=== PATIENT | male | born 1970 | race Two or more races ===

== ENCOUNTER 2016-07-27 09:31 | Inpatient (IN) | payer OTHER ==
[2016-07-27 10:21] VITALS: BMI 25.1
--- NOTE | 2016-07-27 10:59 | HP ---
COWS - Scale Resting Pulse: 1= [place] 81-100 Sweatin= Chills/Flushing Restless Observation: 1= Difficult to Sit Still Pupil Size: 0= Normal to Room Light Bone or Joint Aches: 1= Mild Discomfort Runny Nose/ Eye Tearin= Nasal Congestion GI Upset > 30mins: 2= Nausea/Diarrhea Tremor Observation: 1= Tremor [place], Not Seen Yawning Observation: 1= 1-2x During Session Anxiety or Irritability: 1=Feels Anxious/Irritable Goose Flesh Skin: 0=Smooth Skin COWS Score: 10 CIWA Score - CIWA Score Nausea/Vomitin-Mild Nausea/No Vomiting Muscle Tremors: 4-Moderate,w/Arms Extend Anxiety: 4-Mod. Anxious/Guarded Agitation: 1-Slight > Activity Paroxysmal Sweats: 1-Minimal Palms Moist Orientation: 1-Uncertain about Date Tacttile Disturbances: 1-Very Mild Itch/Numbness Auditory Disturbances: 1-Very Mild Visual Disturbances: 1-Very Mild Sensitivity Headache: 1-Very Mild CIWA-Ar Total Score: 16 Admission [facility] - HPI Chief Complaint: I want to get clean Allergies/Adverse Reactions: Allergies Allergy/AdvReac Type Severity Reaction Status Date / Time No Known Allergies Allergy Verified 07/27/16 11:40 History of Present Illness: 45 yo gentleman here for detox from heroin and alcohol - previous detox here in february 2016 - then he went to [place] and continued using. No seizures but does have occasional black outs. Exam Limitations: Clinical Condition - Ebola screening Have you traveled outside of the country in the last 21 days: No Have you had contact with anyone from an Ebola affected area: No Have you been sick,other than usual withdrawal symptoms: No Do you have a fever: No - Review of Systems Constitutional: Loss of Appetite, Malaise, Night Sweats, Changes in sleep, Weakness, Unexplained wgt Loss EENT: reports: Blurred Vision Respiratory: reports: No Symptoms reported Cardiac: reports: No Symptoms Reported GI: reports: Nausea, Indigestion : reports: Frequency Musculoskeletal: reports: Back Pain, Muscle Pain Integumentary: reports: Flushing Neuro: reports: Tremors Endocrine: reports: No Symptoms Reported Hematology: reports: No Symptoms Reported Psychiatric: reports: Judgement Intact, Mood/Affect Appropiate, Anxious Other Systems: Reviewed and Negative Patient History - Patient Medical History Hx Anemia: No Hx Asthma: No Hx Chronic Obstructive Pulmonary Disease (COPD): No Hx Cancer: No Hx Cardiac Disorders: No Hx Congestive Heart Failure: No Hx Hypertension: Yes (non compliance) Hx Hypercholesterolemia: No Hx Pacemaker: No HX Cerebrovascular Accident: No Hx Seizures: No Hx Dementia: No Hx Diabetes: No Hx Gastrointestinal Disorders: No Hx Liver Disease: Yes (hep C - not treated) Hx Genitourinary Disorders: No Hx Sexually Transmitted Disorders: No Hx Renal Disease (ESRD): No Hx Thyroid Disease: No Hx Human Immunodeficiency Virus (HIV): No (last 2005 negative) Hx Hepatitis C: Yes Hx Depression: No Hx Suicide Attempt: No Hx Bipolar Disorder: No Hx Schizophrenia: No Other Medical History: PPD+ - treated - Patient Surgical History Past Surgical History: No Hx Neurologic Surgery: No Hx Cataract Extraction: No Hx Cardiac Surgery: No Hx Lung Surgery: No Hx Breast Surgery: No Hx Breast Biopsy: No Hx Abdominal Surgery: No Hx Appendectomy: No Hx Cholecystectomy: No Hx Genitourinary Surgery: No Hx Section: No Hx Orthopedic Surgery: No Anesthesia Reaction: No - PPD History Previous Implant?: Yes Documented Results: Positive w/o proof Date: 03/26/16 (cxr) PPD to be Administered?: No - Reproductive History Patient is a Female of Child Bearing Age (11 -55 yrs old): No (male) - Smoking Cessation Smoking history: Current every day smoker Have you smoked in the past 12 months: Yes Aproximately how many cigarettes per day: 20 Hx Chewing Tobacco Use: No Initiated information on smoking cessation: Yes 'Breaking Loose' booklet given: 07/27/16 (give on floor) - Substance & Tx. History Hx Alcohol Use: Yes Hx Substance Use: Yes Substance Use Type: Alcohol, Heroin Hx Substance Use Treatment: Yes (detox, rehab) - Substances Abused Alcohol Route: Oral Frequency: Daily Amount used: two six packs 16oz beer Age of first use: 15 Date of Last Use: 07/26/16 Heroin Route: Injection Frequency: Daily Amount used: 9 bags Age of first use: 18 Date of Last Use: 07/26/16 Family Disease History - Family Disease History Family Disease History: Diabetes: Mother (alive, HTN), Heart Disease: Mother, Other: Father (, ALCOHOL), Mother, Brother (alive, no problems), Sister (2 sisters alive - no problems) Admission Physical Exam [facility] - Vital Signs Vital Signs: Vital Signs - 24 hr 07/27/16 10:18 Temperature 96 F L Pulse Rate 82 Respiratory 20 Rate Blood Pressure 150/90 - Physical General Appearance: Yes: Nourished, Appropriately Dressed, Mild Distress, Tremorous, Anxious HEENTM: Yes: Hearing grossly Normal, Normal ENT Inspection, Normocephalic, Normal Voice, Pharynx Normal Respiratory: Yes: Normal Breath Sounds, No Respiratory Distress Neck: Yes: No masses,lesions,Nodules, Supple Breast: Yes: Breast Exam Deferred Cardiology: Yes: Regular Rhythm, Regular Rate Abdominal: Yes: Flat, Soft Genitourinary: Yes: Within Normal Limits Back: Yes: Normal Inspection Musculoskeletal: Yes: full range of Motion, Gait Steady, Back pain Extremities: Yes: Normal Inspection, Normal Range of Motion, Non-Tender Neurological: Yes: Fully Oriented, Alert, Normal Mood/Affect, Normal Response Integumentary: Yes: Normal Color, Warm, Track Ngo (both arms antecubital space ) Lymphatic: Yes: Within Normal Limits - Diagnostic (1) Alcohol dependence with uncomplicated withdrawal Current Visit: Yes Status: Chronic (2) Essential hypertension Current Visit: Yes Status: Chronic (3) Nicotine dependence Current Visit: Yes Status: Chronic Qualifiers: Nicotine product type: cigarettes Substance use status: uncomplicated Qualified Code(s): F17.210 - Nicotine dependence, cigarettes, uncomplicated (4) Opioid dependence with withdrawal Current Visit: Yes Status: Chronic (5) Weight loss Current Visit: Yes Status: Chronic (6) Hepatitis C Current Visit: Yes Status: Chronic Qualifiers: Viral hepatitis chronicity: carrier Qualified Code(s): B18.2 - Chronic viral hepatitis C (7) PPD positive, treated Current Visit: Yes Status: Chronic Comment: chest x ray 03/26/17 noted Cleared for Admission [facility] - Detox or Rehab [facility] Level of Care: Medically Managed Detox Regimen/Protocol: Methadone/Librium [facility] Breath Alcohol Content Breath Alcohol Content: 0 Urine Drug Screen - Results Drug Screen Negative: No Urine Drug Screen Results: OPI-Opiates
[2016-07-27] MEDS ORDERED: MAGNESIUM HYDROX 2400MG/30ML ORAL SUSPENSION 30 ML CUP PO PRN (11:08)
[2016-07-27] MEDS ORDERED: MAG HYDROX/AL HYDROX/SIMETH 30 ML UNIT-DOSE CUP PO PRN (11:08)
[2016-07-27] MEDS ORDERED: IBUPROFEN 400 MG TABLET (FP) PO PRN (11:08)
[2016-07-27] MEDS ORDERED: MENTHOL/PHENOL 1 EACH UD MM PRN (11:08)
[2016-07-27] MEDS ORDERED: ACETAMINOPHEN 325 MG TABLET (FP) PO PRN (11:08)
[2016-07-27] MEDS ORDERED: METHADONE HCL 10 MG TABLET (FOR DETOX USE ONLY) PO ONE ×2 (11:08→23:00)
[2016-07-27] MEDS ORDERED: chlordiazePOXIDE HCL 25 MG CAPSULE PO PRN (11:08)
[2016-07-27] MEDS ORDERED: hydrOXYzine PAMOATE 50 MG CAPSULE (FP) PO PRN (11:08)
[2016-07-27] MEDS ORDERED: guaiFENesin/D-METHORPHAN HB 10 ML UNIT-DOSE CUPS PO PRN (11:08)
[2016-07-27] MEDS ORDERED: NICOTINE POLACRILEX 4 MG GUM BUC PRN (11:08)
[2016-07-27] MEDS ORDERED: P-EPHED 60MG/TRIPROLIDI 2.5MG TABLET PO PRN (11:08)
[2016-07-27] MEDS ORDERED: MAGNESIUM CITRATE 300 ML BOTTLE PO PRN (11:08)
[2016-07-27] MEDS ORDERED: LOPERAMIDE HCL 2 MG CAPSULE PO PRN (11:08)
[2016-07-27] MEDS: LISINOPRIL 10 MG TABLET (FP) PO SCH (12:53)
[2016-07-27] MEDS ORDERED: chlordiazePOXIDE HCL 25 MG CAPSULE PO ONE (13:00)
[2016-07-27] MEDS: chlordiazePOXIDE HCL 25 MG CAPSULE PO SCH ×2 (17:44→22:22)
[2016-07-27 21:43] LABS: URINE APPEARANCE CLEAR; URINE BILIRUBIN NEGATIVE (NEGATIVE); URINE COLOR AMBER; URINE GLUCOSE (UA) NEGATIVE (NEGATIVE); URINE KETONE NEGATIVE (NEGATIVE); URINE NITRITE NEGATIVE (NEGATIVE); URINE PROTEIN NEGATIVE (NEGATIVE); URINE UROBILINOGEN 4.0 E.U/dl E.U./dl (0.2-1.0)
[2016-07-27 21:46] LABS: URINE BLOOD 2+ (NEGATIVE); URINE LEUK ESTERASE 1+ (NEGATIVE)
[2016-07-27 21:51] LABS: URINE BACTERIA RARE /hpf (NONE SEEN); URINE HYALINE CAST 3 /lpf; URINE MUCUS FEW; URINE RBC 60 /hpf (0-3); URINE WBC 14 /hpf (3-5); YEAST MODERATE
[2016-07-27] MEDS: THIAMINE HCL 100 MG TABLET (FP) PO SCH (22:22)
[2016-07-27] MEDS: diphenhydrAMINE HCL 50 MG CAPSULE PO PRN (22:23)
[2016-07-28] MEDS: chlordiazePOXIDE HCL 25 MG CAPSULE PO SCH ×4 (05:22→22:34)
[2016-07-28] MEDS ORDERED: METHADONE HCL 10 MG TABLET (FOR DETOX USE ONLY) PO SCH (10:00)
[2016-07-28] MEDS: PRENATAL VITAMINS W/ FOLIC ACID TABLET (FP) PO SCH (10:22)
[2016-07-28] MEDS: LISINOPRIL 10 MG TABLET (FP) PO SCH (10:22)
[2016-07-28 10:25] LABS: MCH 28.1 pg (25.7-33.7); MCHC 33.9 g/dl (32.0-35.9); MEAN PLT VOLUME 9.5 fl (7.5-11.1); PLATELET COUNT 41 K/MM3 (134-434); RDW 15.2 % (11.9-15.9); WHITE BLOOD COUNT 3.4 K/mm3 (4.0-10.0)
[2016-07-28 10:48] LABS: ALBUMIN 2.8 g/dl (3.4-5.0); ALK PHOS 93 U/L (45-117); ANION GAP 6 (8-16); BILIRUBIN,TOTAL 0.8 mg/dL (0.2-1.0); CO2 30 mmol/L (21-32); COCKROFT - GAULT 183.32; CREATININE 0.6 mg/dL (0.7-1.3); GLUCOSE,RANDOM 120 mg/dL (74-106); SGOT/AST 126 U/L (15-37); SGPT/ALT 105 U/L (12-78); TOT PROT 6.9 g/dl (6.4-8.2)
--- NOTE | 2016-07-28 15:15 | PN ---
S CIWA - CIWA Score Nausea/Vomitin Muscle Tremors: 4-Moderate,w/Arms Extend Anxiety: 4-Mod. Anxious/Guarded Agitation: 4-Moderately Restless Paroxysmal Sweats: No Perspiration Orientation: 0-Oriented Tacttile Disturbances: 1-Very Mild Itch/Numbness Auditory Disturbances: 0-None Visual Disturbances: 0-None Headache: 1-Very Mild CIWA-Ar Total Score: 17 [facility] COWS - Scale Resting Pulse: 0= [place] 80 or Below Sweatin= Chills/Flushing Restless Observation: 3= Extraneous Movement Pupil Size: 0= Normal to Room Light Bone or Joint Aches: 2= Severe Diffuse Aches Runny Nose/ Eye Tearin= Runny Nose/Eyes GI Upset > 30mins: 1= Stomach Cramp Tremor Observation of Outstretched Hands: 2= Slight Tremor Visible Yawning Observation: 0= None Anxiety or Irritability: 2=Irritable/Anxious Goose Flesh Skin: 0=Smooth Skin COWS Score: 13 [facility] Progress Note (SOAP) Subjective: Anxious, nausea, sweating, interrupted sleep, tremor, chills Objective: 07/28/16 15:14 Last Vital Signs Temp Pulse Resp BP Pulse Ox 96.2 F L 64 19 113/77 07/28/16 13:27 07/28/16 13:27 07/28/16 13:27 07/28/16 13:27 07/28/16 07/28/16 07:50 07:50 WBC 3.4 L D RBC 4.87 Hgb 13.7 Hct 40.5 MCV 83.0 MCHC 33.9 RDW 15.2 Plt Count 41 L Sodium 142 Potassium 4.1 Chloride 106 Carbon Dioxide 30 Anion Gap 6 L BUN 10 D Creatinine 0.6 L D Labs noted Assessment: 07/28/16 15:15 Withdrawal symptoms Plan: Continue detox
[2016-07-28] MEDS: THIAMINE HCL 100 MG TABLET (FP) PO SCH (22:34)
[2016-07-28] MEDS: diphenhydrAMINE HCL 50 MG CAPSULE PO PRN (22:34)
--- NOTE | 2016-07-29 00:15 | EKG ---
Test Reason : Blood Pressure : / mmHG Vent. Rate : 073 BPM Atrial Rate : 073 BPM P-R Int : 132 ms QRS Dur : 096 ms QT Int : 402 ms P-R-T Axes : 021 062 022 degrees QTc Int : 442 ms NORMAL SINUS RHYTHM NORMAL ECG NO PREVIOUS ECGS AVAILABLE Confirmed by TIMA PAINTER MD ([id number]) on 07/29/2016 12:14:54 AM Referred By: Confirmed By:TIMA PAINTER MD
[2016-07-29] MEDS: chlordiazePOXIDE HCL 25 MG CAPSULE PO SCH ×2 (05:46→10:22)
[2016-07-29] MEDS: PRENATAL VITAMINS W/ FOLIC ACID TABLET (FP) PO SCH (10:22)
[2016-07-29] MEDS: LISINOPRIL 10 MG TABLET (FP) PO SCH (10:22)
[2016-07-29] MEDS: METHADONE HCL 5 MG TABLET (FOR DETOX USE ONLY) PO SCH (10:22)
--- NOTE | 2016-07-29 12:18 | PN ---
[facility] CIWA - CIWA Score Nausea/Vomitin-Mild Nausea/No Vomiting Muscle Tremors: 4-Moderate,w/Arms Extend Anxiety: 3 Agitation: 4-Moderately Restless Paroxysmal Sweats: 3 Orientation: 0-Oriented Tacttile Disturbances: 0-None Auditory Disturbances: 0-None Visual Disturbances: 0-None Headache: 0-None Present CIWA-Ar Total Score: 15 [facility] COWS - Scale Resting Pulse: 0= [place] 80 or Below Sweatin=Flushed/Facial Moisture Restless Observation: 1= Difficult to Sit Still Pupil Size: 0= Normal to Room Light Bone or Joint Aches: 2= Severe Diffuse Aches Runny Nose/ Eye Tearin= Runny Nose/Eyes GI Upset > 30mins: 2= Nausea/Diarrhea Tremor Observation of Outstretched Hands: 2= Slight Tremor Visible Yawning Observation: 1= 1-2x During Session Anxiety or Irritability: 2=Irritable/Anxious Goose Flesh Skin: 0=Smooth Skin COWS Score: 14 [facility] Progress Note (SOAP) Subjective: Sweating,interrupted sleep,restless,tremors,anxiety Objective: 07/29/16 12:17 Vital Signs - 8 hr 07/29/16 07/29/16 06:47 09:23 Temperature 95.7 F L 97.1 F L Pulse Rate 67 60 Respiratory 18 18 Rate Blood Pressure 115/68 118/77 Laboratory Last Values WBC 3.4 K/mm3 (4.0-10.0) L D 07/28/16 07:50 RBC 4.87 M/mm3 (4.00-5.60) 07/28/16 07:50 Hgb 13.7 GM/dL (11.7-16.9) 07/28/16 07:50 Hct 40.5 % (35.4-49) 07/28/16 07:50 MCV 83.0 fl (80-96) 07/28/16 07:50 MCHC 33.9 g/dl (32.0-35.9) 07/28/16 07:50 RDW 15.2 % (11.9-15.9) 07/28/16 07:50 Plt Count 41 K/MM3 (134-434) L 07/28/16 07:50 MPV 9.5 fl (7.5-11.1) 07/28/16 07:50 Sodium 142 mmol/L (136-145) 07/28/16 07:50 Potassium 4.1 mmol/L (3.5-5.1) 07/28/16 07:50 Chloride 106 mmol/L (98-107) 07/28/16 07:50 Carbon Dioxide 30 mmol/L (21-32) 07/28/16 07:50 Anion Gap 6 (8-16) L 07/28/16 07:50 BUN 10 mg/dL (7-18) D 07/28/16 07:50 Creatinine 0.6 mg/dL (0.7-1.3) L D 07/28/16 07:50 Creat Clearance w eGFR > 60 (>60) 07/28/16 07:50 Random Glucose 120 mg/dL (74-106) H 07/28/16 07:50 Calcium 8.0 mg/dL (8.5-10.1) L 07/28/16 07:50 Total Bilirubin 0.8 mg/dL (0.2-1.0) 07/28/16 07:50 AST 126 U/L (15-37) H D 07/28/16 07:50 ALT 105 U/L (12-78) H D 07/28/16 07:50 Alkaline Phosphatase 93 U/L (45-117) 07/28/16 07:50 Total Protein 6.9 g/dl (6.4-8.2) 07/28/16 07:50 Albumin 2.8 g/dl (3.4-5.0) L 07/28/16 07:50 Urine Color [place] 07/27/16 Unknown Urine Appearance Clear 07/27/16 Unknown Urine pH 6.0 (5.0-8.0) 07/27/16 Unknown Ur Specific [place] 1.018 (1.001-1.035) 07/27/16 Unknown Urine Protein Negative (NEGATIVE) 07/27/16 Unknown Urine Glucose (UA) Negative (NEGATIVE) 07/27/16 Unknown Urine Ketones Negative (NEGATIVE) 07/27/16 Unknown Urine Blood 2+ (NEGATIVE) H 07/27/16 Unknown Urine Nitrite Negative (NEGATIVE) 07/27/16 Unknown Urine Bilirubin Negative (NEGATIVE) 07/27/16 Unknown Urine Urobilinogen 4.0 e.u/dl E.U./dl (0.2-1.0) 07/27/16 Unknown Ur Leukocyte Esterase 1+ (NEGATIVE) H 07/27/16 Unknown Urine RBC 60 /hpf (0-3) 07/27/16 Unknown Urine WBC 14 /hpf (3-5) 07/27/16 Unknown Ur Epithelial Cells Rare /hpf (FEW) 07/27/16 Unknown Urine Bacteria Rare /hpf (NONE SEEN) 07/27/16 Unknown Hyaline Casts 3 /lpf 07/27/16 Unknown Urine Mucus Few 07/27/16 Unknown Urine Yeast Moderate 07/27/16 Unknown RPR Titer Nonreactive (NONREACTIVE) 07/28/16 07:50 labs noted,repeat U/A Assessment: 07/29/16 12:17 Withdrawal sx. Plan: Continue detox
[2016-07-29 16:53] LABS: URINE APPEARANCE CLEAR; URINE BILIRUBIN NEGATIVE (NEGATIVE); URINE BLOOD NEGATIVE (NEGATIVE); URINE COLOR YELLOW; URINE GLUCOSE (UA) NEGATIVE (NEGATIVE); URINE KETONE NEGATIVE (NEGATIVE); URINE NITRITE NEGATIVE (NEGATIVE); URINE PROTEIN NEGATIVE (NEGATIVE); URINE UROBILINOGEN 2.0 E.U/dl E.U./dl (0.2-1.0)
[2016-07-29 16:58] LABS: URINE LEUK ESTERASE TRACE (NEGATIVE)
[2016-07-29 17:00] LABS: URINE MUCUS RARE; URINE RBC 3 /hpf (0-3); URINE WBC 9 /hpf (3-5)
[2016-07-29] MEDS: chlordiazePOXIDE 5 MG CAPSULE PO SCH ×2 (17:59→22:30)
[2016-07-29] MEDS: THIAMINE HCL 100 MG TABLET (FP) PO SCH (22:29)
[2016-07-29] MEDS: diphenhydrAMINE HCL 50 MG CAPSULE PO PRN (22:29)
[2016-07-30] MEDS: chlordiazePOXIDE 5 MG CAPSULE PO SCH ×2 (05:23→10:21)
[2016-07-30 09:49] VITALS: BP 135/78; PULSE 78; TEMP 96.1
[2016-07-30] MEDS: LISINOPRIL 10 MG TABLET (FP) PO SCH (09:52)
[2016-07-30] MEDS: PRENATAL VITAMINS W/ FOLIC ACID TABLET (FP) PO SCH (09:52)
[2016-07-30] MEDS: METHADONE HCL 5 MG TABLET (FOR DETOX USE ONLY) PO SCH (09:53)
--- NOTE | 2016-07-30 10:26 | PN ---
[facility] Progress Note (SOAP) Subjective: SLIGHT ANXIETY,SWEATS, INTERMITTENT SLEEP. Objective: 07/30/16 10:25 Vital Signs Temperature 96.1 F L 07/30/16 09:48 Pulse Rate 78 07/30/16 09:48 Respiratory Rate 20 07/30/16 09:48 Blood Pressure 135/78 07/30/16 09:48 O2 Sat by Pulse Oximetry (%) Laboratory Last Values WBC 3.4 K/mm3 (4.0-10.0) L D 07/28/16 07:50 RBC 4.87 M/mm3 (4.00-5.60) 07/28/16 07:50 Hgb 13.7 GM/dL (11.7-16.9) 07/28/16 07:50 Hct 40.5 % (35.4-49) 07/28/16 07:50 MCV 83.0 fl (80-96) 07/28/16 07:50 MCHC 33.9 g/dl (32.0-35.9) 07/28/16 07:50 RDW 15.2 % (11.9-15.9) 07/28/16 07:50 Plt Count 41 K/MM3 (134-434) L 07/28/16 07:50 MPV 9.5 fl (7.5-11.1) 07/28/16 07:50 Sodium 142 mmol/L (136-145) 07/28/16 07:50 Potassium 4.1 mmol/L (3.5-5.1) 07/28/16 07:50 Chloride 106 mmol/L (98-107) 07/28/16 07:50 Carbon Dioxide 30 mmol/L (21-32) 07/28/16 07:50 Anion Gap 6 (8-16) L 07/28/16 07:50 BUN 10 mg/dL (7-18) D 07/28/16 07:50 Creatinine 0.6 mg/dL (0.7-1.3) L D 07/28/16 07:50 Creat Clearance w eGFR > 60 (>60) 07/28/16 07:50 Random Glucose 120 mg/dL (74-106) H 07/28/16 07:50 Calcium 8.0 mg/dL (8.5-10.1) L 07/28/16 07:50 Total Bilirubin 0.8 mg/dL (0.2-1.0) 07/28/16 07:50 AST 126 U/L (15-37) H D 07/28/16 07:50 ALT 105 U/L (12-78) H D 07/28/16 07:50 Alkaline Phosphatase 93 U/L (45-117) 07/28/16 07:50 Total Protein 6.9 g/dl (6.4-8.2) 07/28/16 07:50 Albumin 2.8 g/dl (3.4-5.0) L 07/28/16 07:50 Urine Color Yellow 07/29/16 16:28 Urine Appearance Clear 07/29/16 16:28 Urine pH 7.0 (5.0-8.0) 07/29/16 16:28 Ur Specific [place] 1.015 (1.001-1.035) 07/29/16 16:28 Urine Protein Negative (NEGATIVE) 07/29/16 16:28 Urine Glucose (UA) Negative (NEGATIVE) 07/29/16 16:28 Urine Ketones Negative (NEGATIVE) 07/29/16 16:28 Urine Blood Negative (NEGATIVE) 07/29/16 16:28 Urine Nitrite Negative (NEGATIVE) 07/29/16 16:28 Urine Bilirubin Negative (NEGATIVE) 07/29/16 16:28 Urine Urobilinogen 2.0 e.u/dl E.U./dl (0.2-1.0) 07/29/16 16:28 Ur Leukocyte Esterase Trace (NEGATIVE) H 07/29/16 16:28 Urine RBC 3 /hpf (0-3) 07/29/16 16:28 Urine WBC 9 /hpf (3-5) 07/29/16 16:28 Ur Epithelial Cells Rare /hpf (FEW) 07/27/16 Unknown Urine Bacteria Rare /hpf (NONE SEEN) 07/27/16 Unknown Hyaline Casts 3 /lpf 07/27/16 Unknown Urine Mucus Rare 07/29/16 16:28 Urine Yeast Moderate 07/27/16 Unknown RPR Titer Nonreactive (NONREACTIVE) 07/28/16 07:50 UC RESULT PENDING Assessment: 07/30/16 10:25 WITHDRAWAL SX Plan: CONTINUE DETOX
--- NOTE | 2016-07-30 11:13 | DS ---
[facility] Detox Discharge Summary Admission Date: 07/27/16 Discharge Date: 07/30/16 - History Present History: Alcohol Dependence, Opioid Dependence Additional Comments: PT DECLINED TO CONTINUE WITH DETOX FOR PERSONAL REASONS. PT WAS ENCOURAGED TO COMPLETE TX AND REMINDED ABOUT HIS PENDING LAB RESULTS/UC BUT PT STATED TO HIS NURSE, MELANIE THAT HE IS NOT STAYING AND THAT HE ALSO DOES NOT WANT TO BE CONTACTED WITH RESULTS WHEN AVAILABLE. Pertinent Past History: HEP C HTN - Physical Exam Results Vital Signs: Vital Signs Temperature 96.1 F L 07/30/16 09:48 Pulse Rate 78 07/30/16 09:48 Respiratory Rate 20 07/30/16 09:48 Blood Pressure 135/78 07/30/16 09:48 O2 Sat by Pulse Oximetry (%) - Treatment Hospital Course: Discharged Condition Good - Medication Discharge Medications: Ambulatory Orders Lisinopril 10 mg PO DAILY 07/27/16 - Diagnosis (1) Alcohol dependence with uncomplicated withdrawal Current Visit: Yes Status: Acute (2) Essential hypertension Current Visit: Yes Status: Chronic (3) Hepatitis C Current Visit: Yes Status: Chronic Qualifiers: Viral hepatitis chronicity: carrier Qualified Code(s): B18.2 - Chronic viral hepatitis C (4) Nicotine dependence Current Visit: Yes Status: Chronic Qualifiers: Nicotine product type: cigarettes Substance use status: in withdrawal Qualified Code(s): F17.213 - Nicotine dependence, cigarettes, with withdrawal (5) Opioid dependence with withdrawal Current Visit: Yes Status: Acute - AMA Did Patient Leave Against Medical Advice: Yes (AMA)
[2016-07-30] MEDS ORDERED: chlordiazePOXIDE HCL 10 MG CAPSULE PO SCH (17:00)
[2016-07-31] MEDS ORDERED: METHADONE HCL 10 MG TABLET (FOR DETOX USE ONLY) PO SCH (10:00)
[2016-08-01] MEDS ORDERED: METHADONE HCL 5 MG TABLET (FOR DETOX USE ONLY) PO SCH (06:00)
== END 2016-07-30 11:10 | disposition left against medical advice (07) | DRG 770 ==
LOC: YASAS 09:31 → Y3N 12:23
PROVIDERS: ADMIT Internal Medicine; ATTEND Internal Medicine
PROC: HZ2ZZZZ Detoxification Services for Substance Abuse Treatment (ICD-10-PCS; principal; 2016-07-30)
DX: F11.23 Opioid dependence with withdrawal (principal); F17.213 Nicotine dependence, cigarettes, with withdrawal; I10 Essential (primary) hypertension; B18.2 Chronic viral hepatitis C; R76.11 Nonspecific reaction to tuberculin skin test without active tuberculosis; R63.4 Abnormal weight loss; Z68.25 Body mass index [BMI] 25.0-25.9, adult
CPT/HCPCS: 36415; 80053; 81003; 81015; 85027; 86593; 87086; 93005; 93010

== ENCOUNTER 2016-12-06 11:00 | Inpatient (IN) | payer OTHER ==
[2016-12-06 11:44] VITALS: BMI 25.1
[2016-12-06] MEDS ORDERED: NICOTINE 14 MG/24 HOURS TOPICAL PATCH TD PRN (17:37)
[2016-12-06] MEDS ORDERED: NICOTINE POLACRILEX 2 MG GUM BC PRN (17:37)
[2016-12-06] MEDS ORDERED: chlordiazePOXIDE HCL 25 MG CAPSULE PO PRN (17:37)
[2016-12-06] MEDS ORDERED: MAG HYDROX/AL HYDROX/SIMETH 30 ML UNIT-DOSE CUP PO PRN (17:37)
[2016-12-06] MEDS ORDERED: IBUPROFEN 400 MG TABLET (FP) PO PRN (17:37)
[2016-12-06] MEDS ORDERED: P-EPHED 60MG/TRIPROLIDI 2.5MG TABLET PO PRN (17:37)
[2016-12-06] MEDS ORDERED: METHADONE HCL 10 MG TABLET (FOR DETOX USE ONLY) PO ONE ×2 (17:37→23:00)
[2016-12-06] MEDS ORDERED: ACETAMINOPHEN 325 MG TABLET (FP) PO PRN (17:37)
[2016-12-06] MEDS ORDERED: guaiFENesin/D-METHORPHAN HB 10 ML UNIT-DOSE CUPS PO PRN (17:37)
[2016-12-06] MEDS ORDERED: LOPERAMIDE HCL 2 MG CAPSULE PO PRN (17:37)
[2016-12-06] MEDS ORDERED: MAGNESIUM HYDROX 2400MG/30ML ORAL SUSPENSION 30 ML CUP PO PRN (17:37)
[2016-12-06] MEDS ORDERED: MAGNESIUM CITRATE 300 ML BOTTLE PO PRN (17:37)
[2016-12-06] MEDS ORDERED: MENTHOL/PHENOL 1 EACH UD MM PRN (17:37)
--- NOTE | 2016-12-06 17:47 | PN ---
[facility] Progress Note Note: received pharmacist informed that wrong profile order set had been ordered obtained proper medical number and correct order set placed
[2016-12-06 21:17] LABS: URINE APPEARANCE CLOUDY; URINE BILIRUBIN NEGATIVE (NEGATIVE); URINE BLOOD 1+ (NEGATIVE); URINE COLOR AMBER; URINE GLUCOSE (UA) NEGATIVE (NEGATIVE); URINE KETONE NEGATIVE (NEGATIVE); URINE NITRITE NEGATIVE (NEGATIVE); URINE UROBILINOGEN 4.0 E.U/dl mg/dL (0.2-1.0)
[2016-12-06 21:20] LABS: URINE LEUK ESTERASE 2+ (NEGATIVE); URINE PROTEIN 2+ (NEGATIVE)
[2016-12-06 21:34] LABS: CALCIUM OXALATE CRYSTALS RARE /hpf (NONE SEEN); URINE BACTERIA FEW /hpf (NONE SEEN); URINE HYALINE CAST 58 /lpf; URINE MUCUS MANY; URINE RBC 9 /hpf (0-3); URINE WBC 126 /hpf (3-5); YEAST FEW
[2016-12-06] MEDS: chlordiazePOXIDE HCL 25 MG CAPSULE PO SCH (22:08)
[2016-12-06] MEDS: THIAMINE HCL 100 MG TABLET (FP) PO SCH (22:08)
[2016-12-06] MEDS: diphenhydrAMINE HCL 50 MG CAPSULE PO PRN (22:10)
[2016-12-07] MEDS: chlordiazePOXIDE HCL 25 MG CAPSULE PO SCH ×4 (06:09→22:14)
[2016-12-07] MEDS ORDERED: METHADONE HCL 10 MG TABLET (FOR DETOX USE ONLY) PO SCH (10:00)
[2016-12-07] MEDS: LISINOPRIL 10 MG TABLET (FP) PO SCH (10:09)
[2016-12-07] MEDS: PRENATAL VITAMINS W/ FOLIC ACID TABLET (FP) PO SCH (10:09)
--- NOTE | 2016-12-07 12:58 | CONSULT ---
[facility] Psychiatric Consult - Data Date of interview: 12/07/16 Admission source: [facility] Identifying data: Readmission to [facility] for this 46 y/o male seeking detox treatment on for alcohol and heroin dependence.Patient is ,a father of two,domiciled,currently unemployed and collecting unemployment benefits. Substance Abuse History: Discussed with patient in this interview.Mr Cedeno confirms personal history of alcohol and heroin dependence. -Smoking Cessation. Smoking history: Current every day smoker. Have you smoked in the past 12 months: Yes. Aproximately how many cigarettes per day: 20. Hx Chewing Tobacco Use: No. Initiated information on smoking cessation: Yes. 'Breaking Loose' booklet given: 12/06/16. - Substance & Tx. History. Hx Alcohol Use: Yes. Hx Substance Use: Yes. Substance Use Type: Alcohol, Heroin Medical History: Hepatitis C and Hypertension. Psychiatric History: Patient denies. Physical/Sexual Abuse/Trauma History: Patient denies. Additional Comment: No Urine toxicology available. Mental Status Exam - Mental Status Exam Alert and Oriented to: Time, Place, Person Cognitive Function: Good Patient Appearance: Well Groomed Mood: Hopeful, Euthymic Affect: Appropriate, Normal Range Patient Behavior: Fatigued, Appropriate, Cooperative Speech Pattern: Clear Voice Loudness: Normal Thought Process: Intact, Goal Oriented Thought Disorder: Not Present Hallucinations: Denies Suicidal Ideation: Denies Homicidal Ideation: Denies Insight/Judgement: Poor Sleep: Poorly (wants benadryl) Appetite: Good Muscle strength/Tone: Normal Gait/Station: Normal Psychiatric Findings - Problem List ([place] 1, 2,3) (1) Alcohol dependence with uncomplicated withdrawal Current Visit: Yes Status: Acute (2) Opioid dependence with withdrawal Current Visit: Yes Status: Acute (3) Nicotine dependence Current Visit: No Status: Chronic Qualifiers: Nicotine product type: cigarettes Substance use status: in withdrawal Qualified Code(s): F17.213 - Nicotine dependence, cigarettes, with withdrawal (4) Essential hypertension Current Visit: Yes Status: Chronic (5) Hepatitis C Current Visit: Yes Status: Chronic Qualifiers: Viral hepatitis chronicity: carrier Qualified Code(s): B18.2 - Chronic viral hepatitis C (6) PPD positive, treated Current Visit: Yes Status: Chronic Comment: chest x ray 03/26/17 noted (7) Weight loss Current Visit: Yes Status: Chronic (8) Insomnia Current Visit: Yes Status: Acute - Initial Treatment Plan Initial Treatment Plan: Psychoeducation.Detoxification.Benadryl 50 mg po hs prn for insomnia.Side effects/benefits discussed with patient.He agrees with careplan.Observation.
[2016-12-07 13:19] LABS: HIV 1 & 2 AB NEGATIVE; HIV 1 AGp24 NEGATIVE
--- NOTE | 2016-12-07 14:33 | PN ---
[facility] CIWA - CIWA Score Nausea/Vomitin-Mild Nausea/No Vomiting Muscle Tremors: 3 Anxiety: 4-Mod. Anxious/Guarded Agitation: 3 Paroxysmal Sweats: 3 Orientation: 0-Oriented Tacttile Disturbances: 2-Mild Itch/Numbness/Burn Auditory Disturbances: 0-None Visual Disturbances: 2-Mild Sensitivity Headache: 0-None Present CIWA-Ar Total Score: 18 S COWS - Scale Resting Pulse: 0= [place] 80 or Below Sweatin= Chills/Flushing Restless Observation: 1= Difficult to Sit Still Pupil Size: 0= Normal to Room Light Bone or Joint Aches: 2= Severe Diffuse Aches Runny Nose/ Eye Tearin= Nasal Congestion GI Upset > 30mins: 1= Stomach Cramp Tremor Observation of Outstretched Hands: 2= Slight Tremor Visible Yawning Observation: 1= 1-2x During Session Anxiety or Irritability: 2=Irritable/Anxious Goose Flesh Skin: 3=Pil[place] COWS Score: 14 [facility] Progress Note (SOAP) Subjective: Anxious, Sweating, Fatigue, Tremors. Objective: PT. A & O X 3. NO ACUTE DISTRESS. 12/07/16 14:29 Vital Signs Temperature 97.4 F L 12/07/16 13:41 Pulse Rate 65 12/07/16 13:41 Respiratory Rate 18 12/07/16 13:41 Blood Pressure 130/79 12/07/16 13:41 O2 Sat by Pulse Oximetry (%) Laboratory Tests 12/06/16 12/06/16 13:00 20:00 Urine Color [place] Urine Appearance Cloudy Urine pH 5.0 D Ur Specific [place] 1.025 Urine Protein 2+ H Urine Glucose (UA) Negative Urine Ketones Negative Urine Blood 1+ H Urine Nitrite Negative Urine Bilirubin Negative Urine Urobilinogen 4.0 e.u/dl Ur Leukocyte Esterase 2+ H D Urine RBC 9 Urine WBC 126 Ur Epithelial Cells Rare Calcium Oxalate Crystal Rare Urine Bacteria Few Hyaline Casts 58 Urine Mucus Many Urine Yeast Few HIV 1&2 Antibody Screen Negative HIV P24 Antigen Negative LABS NOTED. RPR RESULT PENDING. 12/07/16 14:32 Assessment: 12/07/16 14:30 WITHDRAWAL SYMPTOMS. Plan: CONTINUE DETOX. REPEAT CBC, CMP FOR ADMISSION ABNORMALITIES. REPEAT UA WITH URINE C + S. BGM ACBK FOR ELEVATED ADMISSION RANDOM GLUCOSE LEVEL. INCREASE PO FLUID INTAKE.
[2016-12-07] MEDS: THIAMINE HCL 100 MG TABLET (FP) PO SCH (22:14)
[2016-12-07] MEDS: diphenhydrAMINE HCL 50 MG CAPSULE PO PRN (22:15)
[2016-12-08] MEDS: chlordiazePOXIDE HCL 25 MG CAPSULE PO SCH ×3 (05:32→17:22)
[2016-12-08] MEDS: METHADONE HCL 5 MG TABLET (FOR DETOX USE ONLY) PO SCH (10:11)
[2016-12-08] MEDS: PRENATAL VITAMINS W/ FOLIC ACID TABLET (FP) PO SCH (10:11)
[2016-12-08] MEDS: LISINOPRIL 10 MG TABLET (FP) PO SCH (10:11)
--- NOTE | 2016-12-08 13:49 | PN ---
S CIWA - CIWA Score Nausea/Vomitin Muscle Tremors: 4-Moderate,w/Arms Extend Anxiety: 4-Mod. Anxious/Guarded Agitation: 4-Moderately Restless Paroxysmal Sweats: 3 Orientation: 0-Oriented Tacttile Disturbances: 1-Very Mild Itch/Numbness Auditory Disturbances: 0-None Visual Disturbances: 0-None Headache: 0-None Present CIWA-Ar Total Score: 19 [facility] COWS - Scale Resting Pulse: 0= [place] 80 or Below Sweatin= Chills/Flushing Restless Observation: 3= Extraneous Movement Pupil Size: 0= Normal to Room Light Bone or Joint Aches: 1= Mild Discomfort Runny Nose/ Eye Tearin= Runny Nose/Eyes GI Upset > 30mins: 1= Stomach Cramp Tremor Observation of Outstretched Hands: 2= Slight Tremor Visible Yawning Observation: 1= 1-2x During Session Anxiety or Irritability: 2=Irritable/Anxious Goose Flesh Skin: 0=Smooth Skin COWS Score: 13 S Progress Note (SOAP) Subjective: Nausea, chills, tremor, sweating, interrupted sleep Objective: 12/08/16 13:48 Laboratory Tests 12/06/16 12/06/16 12/08/16 13:00 20:00 05:32 POC Glucometer 106 Urine Color [place] Urine Appearance Cloudy Urine pH 5.0 D Ur Specific [place] 1.025 Urine Protein 2+ H Urine Glucose (UA) Negative Urine Ketones Negative Urine Blood 1+ H Urine Nitrite Negative Urine Bilirubin Negative Urine Urobilinogen 4.0 e.u/dl Ur Leukocyte Esterase 2+ H D Urine RBC 9 Urine WBC 126 Ur Epithelial Cells Rare Calcium Oxalate Crystal Rare Urine Bacteria Few Hyaline Casts 58 Urine Mucus Many Urine Yeast Few HIV 1&2 Antibody Screen Negative HIV P24 Antigen Negative Labs noted: abnormal UA; platelet 80, bun 20 Assessment: 12/08/16 13:48 Withdrawal symptoms Noted with abnormal UA, thrombocytopenia, azotemia Plan: Continue detox Abnormal UA: encouraged to drink lots of water, repeat UA Thrombocytopenia, mild: monitor for bruising/bleeding, follow up with PCP in 1 week post discharge for monitoring Azotemia: encouraged to drink lots of water
--- NOTE | 2016-12-08 15:43 | PN ---
[facility] Progress Note Note: [facility] History and Physical Patient Name: JAMAL ARNOLD Date of : 74 Patient Status: Referred Attending Provider: Maruks Kaye Date: 12/06/16 15:20 Initialization Date: 12/06/16 15:20 COWS - Scale Resting Pulse: 0= [place] 80 or Below Sweatin=Flushed/Facial Moisture Restless Observation: 3= Extraneous Movement Pupil Size: 2= Moderately Dilated Bone or Joint Aches: 2= Severe Diffuse Aches Runny Nose/ Eye Tearin= Runny Nose/Eyes GI Upset > 30mins: 3= Vomiting/Diarrhea Tremor Observation: 2= Slight Tremor Visible Yawning Observation: 2= >3x During Session Anxiety or Irritability: 2=Irritable/Anxious Goose Flesh Skin: 0=Smooth Skin COWS Score: 20 CIWA Score - CIWA Score Nausea/Vomitin Muscle Tremors: 3 Anxiety: 3 Agitation: 3 Paroxysmal Sweats: 2 Orientation: 0-Oriented Tacttile Disturbances: 2-Mild Itch/Numbness/Burn Auditory Disturbances: 2-Mild Harshness/Frighten Visual Disturbances: 2-Mild Sensitivity Headache: 2-Mild CIWA-Ar Total Score: 22 Admission ROS S - HPI Chief Complaint: i need help to stop using heroin and alcohol Allergies/Adverse Reactions: Allergies Allergy/AdvReac Type Severity Reaction Status Date / Time No Known Allergies Allergy Verified 12/06/16 12:48 History of Present Illness: this 46 years old male with heroin and alcohol dependence,seeking detox,last treatment 07/27/16 to 07/30/16 hepatitis c htn non compliance weight loss nicotine dependence multiple admissions in the past longest period of sobriety 1 year Exam Limitations: No Limitations - Ebola screening Have you traveled outside of the country in the last 21 days: No Have you had contact with anyone from an Ebola affected area: No Have you been sick,other than usual withdrawal symptoms: No Do you have a fever: No - Review of Systems Constitutional: Chills, Diaphoresis, Loss of Appetite, Malaise, Night Sweats, Changes in sleep, Weakness, Unintentional Wgt. Loss EENT: reports: Tearing, Nose Congestion Respiratory: reports: No Symptoms reported Cardiac: reports: No Symptoms Reported GI: reports: Diarrhea, Nausea, Vomiting, Abdominal cramping : reports: No Symptoms Reported Musculoskeletal: reports: Back Pain, Joint Pain, Muscle Pain, Joint Stiffness Integumentary: reports: Dryness Neuro: reports: Headache, Tremors Endocrine: reports: No Symptoms Reported Hematology: reports: No Symptoms Reported Psychiatric: reports: No Sypmtoms Reported, Judgement Intact, Mood/Affect Appropiate, Orientated x3 Patient History - Patient Medical History Hx Anemia: No Hx Asthma: No Hx Chronic Obstructive Pulmonary Disease (COPD): No Hx Cancer: No Hx Cardiac Disorders: No Hx Congestive Heart Failure: No Hx Hypertension: Yes (non compliance) Hx Hypercholesterolemia: No Hx Pacemaker: No HX Cerebrovascular Accident: No Hx Seizures: No Hx Dementia: No Hx Diabetes: No Hx Gastrointestinal Disorders: No Hx Liver Disease: Yes (hep C - not treated) Hx Genitourinary Disorders: No Hx Sexually Transmitted Disorders: No Hx Renal Disease (ESRD): No Hx Thyroid Disease: No Hx Human Immunodeficiency Virus (HIV): No (last 2005 negative) Hx Hepatitis C: Yes Hx Depression: No Hx Suicide Attempt: No Hx Bipolar Disorder: No Hx Schizophrenia: No Other Medical History: no suiidal,no homicidal - Patient Surgical History Past Surgical History: No Hx Neurologic Surgery: No Hx Cataract Extraction: No Hx Cardiac Surgery: No Hx Lung Surgery: No Hx Breast Surgery: No Hx Breast Biopsy: No Hx Abdominal Surgery: No Hx Appendectomy: No Hx Cholecystectomy: No Hx Genitourinary Surgery: No Hx Section: No Hx Orthopedic Surgery: No Anesthesia Reaction: No - PPD History Previous Implant?: Yes Documented Results: Negative w/proof Date: 03/26/16 PPD to be Administered?: No - Smoking Cessation Smoking history: Current every day smoker Have you smoked in the past 12 months: Yes Aproximately how many cigarettes per day: 20 Hx Chewing Tobacco Use: No Initiated information on smoking cessation: Yes 'Breaking Loose' booklet given: 12/06/16 - Substance & Tx. History Hx Alcohol Use: Yes Hx Substance Use: Yes Substance Use Type: Alcohol, Heroin Family Disease History - Family Disease History Family Disease History: Diabetes: Mother (alive, HTN), Heart Disease: Mother, Other: Father (, ALCOHOL), Mother, Brother (alive, no problems), Sister (2 sisters alive - no problems) Admission Physical Exam [facility] - Physical General Appearance: Yes: Moderate Distress, Tremorous, Irritable, Sweating, Anxious HEENTM: Yes: Normal ENT Inspection, Normocephalic, JEFFRY, Pharynx Normal Respiratory: Yes: Lungs Clear, Normal Breath Sounds, No Respiratory Distress Neck: Yes: Within Normal Limits, Supple, Trachea in good position Breast: Yes: Within Normal Limits Cardiology: Yes: Within Normal Limits, Regular Rhythm, Regular Rate, S1, S2 Abdominal: Yes: Within Normal Limits, Normal Bowel Sounds, Non Tender, Flat, Soft Genitourinary: Yes: Within Normal Limits Back: Yes: Within Normal Limits, Normal Inspection, Muscle Spasm Musculoskeletal: Yes: Back pain, Joint Stiffness, Muscle Pain Extremities: Yes: Within Normal Limits, Normal Range of Motion, Tremors 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 intact, Fully Oriented, Alert, Motor Strength 5/5 Integumentary: Yes: Dry Lymphatic: Yes: Within Normal Limits - Diagnostic (1) Alcohol dependence with uncomplicated withdrawal Status: Acute (2) Opioid dependence with withdrawal Status: Acute (3) Syncope Status: Acute (4) Essential hypertension Status: Chronic (5) Hepatitis C Status: Chronic Qualifiers: Viral hepatitis chronicity: carrier Qualified Code(s): B18.2 - Chronic viral hepatitis C (6) Nicotine dependence Status: Chronic Qualifiers: Nicotine product type: cigarettes Substance use status: in withdrawal Qualified Code(s): F17.213 - Nicotine dependence, cigarettes, with withdrawal (7) PPD positive, treated Status: Chronic Comment: chest x ray 03/26/17 noted (8) Weight loss Status: Chronic Cleared for Admission [facility] - Detox or Rehab [facility] Level of Care: Medically Managed Detox Regimen/Protocol: Methadone/Librium [facility] Breath Alcohol Content Breath Alcohol Content: 0
[2016-12-08 18:16] LABS: URINE APPEARANCE CLEAR; URINE BILIRUBIN NEGATIVE (NEGATIVE); URINE BLOOD NEGATIVE (NEGATIVE); URINE COLOR DKYELLOW; URINE GLUCOSE (UA) NEGATIVE (NEGATIVE); URINE KETONE NEGATIVE (NEGATIVE); URINE NITRITE NEGATIVE (NEGATIVE); URINE PROTEIN NEGATIVE (NEGATIVE); URINE UROBILINOGEN 4.0 E.U/dl mg/dL (0.2-1.0)
[2016-12-08 18:27] LABS: URINE LEUK ESTERASE 2+ (NEGATIVE)
[2016-12-08 18:31] LABS: URINE MUCUS RARE; URINE RBC 30 /hpf (0-3); URINE WBC 23 /hpf (3-5)
[2016-12-08] MEDS: chlordiazePOXIDE 5 MG CAPSULE PO SCH (22:06)
[2016-12-08] MEDS: diphenhydrAMINE HCL 50 MG CAPSULE PO PRN (22:06)
[2016-12-08] MEDS: THIAMINE HCL 100 MG TABLET (FP) PO SCH (22:06)
[2016-12-09] MEDS: chlordiazePOXIDE 5 MG CAPSULE PO SCH ×3 (05:01→17:34)
--- NOTE | 2016-12-09 09:25 | PN ---
[facility] Progress Note (SOAP) Subjective: nausea, sweats, interrupted sleep, anxiety, tremors Objective: 12/09/16 09:24 Vital Signs - 8 hr 12/09/16 12/09/16 12/09/16 03:34 06:21 09:03 Temperature 97.0 F L 96.8 F L Pulse Rate 63 69 Respiratory 18 18 18 Rate Blood Pressure 93/52 105/69 Laboratory Tests 12/06/16 12/06/16 12/08/16 13:00 20:00 05:32 POC Glucometer 106 Urine Color [place] Urine Appearance Cloudy Urine pH 5.0 D Ur Specific [place] 1.025 Urine Protein 2+ H Urine Glucose (UA) Negative Urine Ketones Negative Urine Blood 1+ H Urine Nitrite Negative Urine Bilirubin Negative Urine Urobilinogen 4.0 e.u/dl Ur Leukocyte Esterase 2+ H D Urine RBC 9 Urine WBC 126 Ur Epithelial Cells Rare Calcium Oxalate Crystal Rare Urine Bacteria Few Hyaline Casts 58 Urine Mucus Many Urine Yeast Few HIV 1&2 Antibody Screen Negative HIV P24 Antigen Negative 12/08/16 16:02 POC Glucometer Urine Color [place] Urine Appearance Clear Urine pH 7.0 D Ur Specific [place] 1.020 Urine Protein Negative Urine Glucose (UA) Negative Urine Ketones Negative Urine Blood Negative Urine Nitrite Negative Urine Bilirubin Negative Urine Urobilinogen 4.0 e.u/dl Ur Leukocyte Esterase 2+ H Urine RBC 30 Urine WBC 23 Ur Epithelial Cells Calcium Oxalate Crystal Urine Bacteria Hyaline Casts Urine Mucus Rare Urine Yeast HIV 1&2 Antibody Screen HIV P24 Antigen labs pending Assessment: 12/09/16 09:24 withdrawal sx Plan: cont detox
[2016-12-09] MEDS: METHADONE HCL 5 MG TABLET (FOR DETOX USE ONLY) PO SCH (10:08)
[2016-12-09] MEDS: LISINOPRIL 10 MG TABLET (FP) PO SCH (10:08)
[2016-12-09] MEDS: PRENATAL VITAMINS W/ FOLIC ACID TABLET (FP) PO SCH (10:08)
[2016-12-09 10:15] LABS: BASOPHIL 0.6 % (0-2.0); MCH 27.8 pg (25.7-33.7); MCHC 34.1 g/dl (32.0-35.9); MEAN CELL VOLUME 81.5 fl (80-96); MEAN PLT VOLUME 8.8 fl (7.5-11.1); NEUTROPHILS 45.2 % (42.8-82.8); PLATELET COUNT 63 K/MM3 (134-434); RDW 14.5 % (11.9-15.9)
[2016-12-09 10:25] LABS: ALBUMIN 2.4 g/dl (3.4-5.0); CALCIUM 8.3 mg/dL (8.5-10.1); SGOT/AST 96 U/L (15-37); SGPT/ALT 81 U/L (12-78)
[2016-12-09 10:27] LABS: ALK PHOS 98 U/L (45-117); ANION GAP 8 (8-16); CO2 28 mmol/L (21-32); CREATININE 0.6 mg/dL (0.7-1.3); GLUCOSE,RANDOM 99 mg/dL (74-106); TOT PROT 7.4 g/dl (6.4-8.2)
[2016-12-09] MEDS: diphenhydrAMINE HCL 50 MG CAPSULE PO PRN (22:01)
[2016-12-09] MEDS: THIAMINE HCL 100 MG TABLET (FP) PO SCH (22:01)
[2016-12-09] MEDS: chlordiazePOXIDE HCL 10 MG CAPSULE PO SCH (22:01)
[2016-12-10] MEDS: chlordiazePOXIDE HCL 10 MG CAPSULE PO SCH ×2 (06:40→10:03)
[2016-12-10 09:11] VITALS: BP 108/72; PULSE 70; TEMP 97.5
[2016-12-10] MEDS ORDERED: METHADONE HCL 10 MG TABLET (FOR DETOX USE ONLY) PO SCH (10:00)
[2016-12-10] MEDS: PRENATAL VITAMINS W/ FOLIC ACID TABLET (FP) PO SCH (10:03)
[2016-12-10] MEDS: LISINOPRIL 10 MG TABLET (FP) PO SCH (10:03)
--- NOTE | 2016-12-10 10:54 | DS ---
[facility] Detox Discharge Summary Admission Date: 12/06/16 Discharge Date: 12/10/16 - History Present History: Alcohol Dependence, Opioid Dependence Additional Comments: PT DECLINED TO CONTINUE WITH DETOX FOR PERSONAL REASONS. PT THREW OUT HIS LIBRIUM 10 MG AND METHADONE 10 MG ON THE MEDICATION WINDOW AND SAYS HE IS LEAVING. 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 ALERT O X 3. NAD. PT INSTRUCTED TO FOLLOW UP WITH PMD AT [facility] NEEDED. Pertinent Past History: HTN - Physical Exam Results Vital Signs: Vital Signs Temperature 97.5 F L 12/10/16 09:10 Pulse Rate 70 12/10/16 09:10 Respiratory Rate 18 12/10/16 09:10 Blood Pressure 108/72 12/10/16 09:10 O2 Sat by Pulse Oximetry (%) Pertinent Admission Physical Exam Findings: WITHDRAWAL SX Laboratory Last Values WBC 4.0 K/mm3 (4.0-10.0) 12/09/16 07:00 RBC 4.61 M/mm3 (4.00-5.60) 12/09/16 07:00 Hgb 12.8 GM/dL (11.7-16.9) 12/09/16 07:00 Hct 37.6 % (35.4-49) 12/09/16 07:00 MCV 81.5 fl (80-96) 12/09/16 07:00 MCH 27.8 pg (25.7-33.7) 12/09/16 07:00 MCHC 34.1 g/dl (32.0-35.9) 12/09/16 07:00 RDW 14.5 % (11.9-15.9) 12/09/16 07:00 Plt Count 63 K/MM3 (134-434) L D 12/09/16 07:00 MPV 8.8 fl (7.5-11.1) 12/09/16 07:00 Neutrophils % 45.2 % (42.8-82.8) 12/09/16 07:00 Lymphocytes % 36.1 % (8-40) 12/09/16 07:00 Monocytes % 15.1 % (3.8-10.2) H 12/09/16 07:00 Eosinophils % 3.0 % (0-4.5) 12/09/16 07:00 Basophils % 0.6 % (0-2.0) 12/09/16 07:00 Sodium 138 mmol/L (136-145) 12/09/16 07:00 Potassium 4.0 mmol/L (3.5-5.1) 12/09/16 07:00 Chloride 102 mmol/L (98-107) 12/09/16 07:00 Carbon Dioxide 28 mmol/L (21-32) 12/09/16 07:00 Anion Gap 8 (8-16) 12/09/16 07:00 BUN 11 mg/dL (7-18) D 12/09/16 07:00 Creatinine 0.6 mg/dL (0.7-1.3) L D 12/09/16 07:00 Creat Clearance w eGFR > 60 (>60) 12/09/16 07:00 POC Glucometer 106 UNITS (()) 12/08/16 05:32 Random Glucose 99 mg/dL (74-106) D 12/09/16 07:00 Calcium 8.3 mg/dL (8.5-10.1) L 12/09/16 07:00 Total Bilirubin 1.0 mg/dL (0.2-1.0) D 12/09/16 07:00 AST 96 U/L (15-37) H 12/09/16 07:00 ALT 81 U/L (12-78) H 12/09/16 07:00 Alkaline Phosphatase 98 U/L (45-117) 12/09/16 07:00 Total Protein 7.4 g/dl (6.4-8.2) 12/09/16 07:00 Albumin 2.4 g/dl (3.4-5.0) L 12/09/16 07:00 Urine Color [place] 12/08/16 16:02 Urine Appearance Clear 12/08/16 16:02 Urine pH 7.0 (5.0-8.0) D 12/08/16 16:02 Ur Specific [place] 1.020 (1.005-1.025) 12/08/16 16:02 Urine Protein Negative (NEGATIVE) 12/08/16 16:02 Urine Glucose (UA) Negative (NEGATIVE) 12/08/16 16:02 Urine Ketones Negative (NEGATIVE) 12/08/16 16:02 Urine Blood Negative (NEGATIVE) 12/08/16 16:02 Urine Nitrite Negative (NEGATIVE) 12/08/16 16:02 Urine Bilirubin Negative (NEGATIVE) 12/08/16 16:02 Urine Urobilinogen 4.0 e.u/dl mg/dL (0.2-1.0) 12/08/16 16:02 Ur Leukocyte Esterase 2+ (NEGATIVE) H 12/08/16 16:02 Urine RBC 30 /hpf (0-3) 12/08/16 16:02 Urine WBC 23 /hpf (3-5) 12/08/16 16:02 Ur Epithelial Cells Rare /hpf (FEW) 12/06/16 20:00 Calcium Oxalate Crystal Rare /hpf (NONE SEEN) 12/06/16 20:00 Urine Bacteria Few /hpf (NONE SEEN) 12/06/16 20:00 Hyaline Casts 58 /lpf 12/06/16 20:00 Urine Mucus Rare 12/08/16 16:02 Urine Yeast Few 12/06/16 20:00 HIV 1&2 Antibody Screen Negative 12/06/16 13:00 HIV P24 Antigen Negative 12/06/16 13:00 - Treatment Hospital Course: Discharged Condition Good - Medication Discharge Medications: Ambulatory Orders Lisinopril 10 mg PO DAILY 07/27/16 - Diagnosis (1) Alcohol dependence with uncomplicated withdrawal Current Visit: Yes Status: Acute (2) Nicotine dependence Current Visit: Yes Status: Acute Qualifiers: Nicotine product type: cigarettes Substance use status: in withdrawal Qualified Code(s): F17.213 - Nicotine dependence, cigarettes, with withdrawal (3) Opioid dependence with withdrawal Current Visit: Yes Status: Acute (4) Essential hypertension Current Visit: Yes Status: Chronic (5) Hepatitis C Current Visit: Yes Status: Chronic Qualifiers: Viral hepatitis chronicity: carrier Qualified Code(s): B18.2 - Chronic viral hepatitis C - AMA Did Patient Leave Against Medical Advice: Yes (AMA)
[2016-12-11] MEDS ORDERED: METHADONE HCL 5 MG TABLET (FOR DETOX USE ONLY) PO SCH (06:00)
== END 2016-12-10 11:21 | disposition left against medical advice (07) | DRG 770 ==
LOC: YASAS 11:00 → Y3N 15:53
PROVIDERS: ADMIT Internal Medicine Addiction Medicine; ATTEND Internal Medicine Addiction Medicine
PROC: HZ2ZZZZ Detoxification Services for Substance Abuse Treatment (ICD-10-PCS; principal; 2016-12-06)
DX: F11.23 Opioid dependence with withdrawal (principal); F10.230 Alcohol dependence with withdrawal, uncomplicated; F17.213 Nicotine dependence, cigarettes, with withdrawal; I10 Essential (primary) hypertension; B18.2 Chronic viral hepatitis C; R82.90 Unspecified abnormal findings in urine; D69.6 Thrombocytopenia, unspecified; R76.11 Nonspecific reaction to tuberculin skin test without active tuberculosis; G47.00 Insomnia, unspecified; Z91.14 Patient's other noncompliance with medication regimen; Z87.898 Personal history of other specified conditions
CPT/HCPCS: 36415; 80053; 81003; 81015; 85025; 85027; 86593; 87086; 87389; 93005; 93010

== ENCOUNTER 2017-07-01 11:36 | Inpatient (IN) | payer OTHER ==
[2017-07-01 12:32] VITALS: BMI 25.1
--- NOTE | 2017-07-01 16:13 | HP ---
COWS - Scale Resting Pulse: 0= NE 80 or Below Sweatin=Flushed/Facial Moisture Restless Observation: 3= Extraneous Movement Pupil Size: 2= Moderately Dilated Bone or Joint Aches: 2= Severe Diffuse Aches Runny Nose/ Eye Tearin= Runny Nose/Eyes GI Upset > 30mins: 3= Vomiting/Diarrhea Tremor Observation: 2= Slight Tremor Visible Yawning Observation: 2= >3x During Session Anxiety or Irritability: 2=Irritable/Anxious Goose Flesh Skin: 0=Smooth Skin COWS Score: 20 CIWA Score - CIWA Score Nausea/Vomitin Muscle Tremors: 3 Anxiety: 3 Agitation: 3 Paroxysmal Sweats: 2 Orientation: 0-Oriented Tacttile Disturbances: 2-Mild Itch/Numbness/Burn Auditory Disturbances: 2-Mild Harshness/Frighten Visual Disturbances: 2-Mild Sensitivity Headache: 2-Mild CIWA-Ar Total Score: 22 Admission ROS [facility] - HPI Chief Complaint: I NEED HELP TO STOP USING HEROIN AND ALCOHOL Allergies/Adverse Reactions: Allergies Allergy/AdvReac Type Severity Reaction Status Date / Time No Known Allergies Allergy Verified 07/01/17 14:07 History of Present Illness: THIS 46 YEARS OLD MALE WITH HEORIN AND ALCOHOL DEPENDENCE,SEEKING DETOX, WITHDRAWAL SYMPTOM,LAST DETOX [facility] 01/29.17 TO 02/02/17 SYNCOPE HYPERTENSION HEPATITIS C WEIGHT LOSS NICOTINE DEPENDENCE POSITIVE PPD NO SIGNIFICANT PERIOD OF SOBRIETY - Ebola screening Have you traveled outside of the country in the last 21 days: No Have you had contact with anyone from an Ebola affected area: No Have you been sick,other than usual withdrawal symptoms: No Do you have a fever: No - Review of Systems Constitutional: Chills, Diaphoresis, Loss of Appetite, Malaise, Night Sweats, Changes in sleep, Weakness, Unintentional Wgt. Loss EENT: reports: Tearing, Nose Congestion Respiratory: reports: No Symptoms reported Cardiac: reports: No Symptoms Reported GI: reports: Diarrhea, Nausea, Vomiting, Abdominal cramping : reports: No Symptoms Reported Musculoskeletal: reports: Back Pain, Joint Pain, Muscle Pain, Joint Stiffness Integumentary: reports: Dryness Neuro: reports: Headache, Tremors Endocrine: reports: No Symptoms Reported Hematology: reports: No Symptoms Reported Psychiatric: reports: No Sypmtoms Reported, Judgement Intact, Mood/Affect Appropiate, Orientated x3 Patient History - Patient Medical History Hx Anemia: No Hx Asthma: No Hx Chronic Obstructive Pulmonary Disease (COPD): No Hx Cancer: No Hx Cardiac Disorders: No Hx Congestive Heart Failure: No Hx Hypertension: Yes (ON MED) Hx Hypercholesterolemia: No Hx Pacemaker: No HX Cerebrovascular Accident: No Hx Seizures: No Hx Dementia: No Hx Diabetes: No Hx Gastrointestinal Disorders: No Hx Liver Disease: Yes (hep C - not treated) Hx Genitourinary Disorders: No Hx Sexually Transmitted Disorders: No Hx Renal Disease (ESRD): No Hx Thyroid Disease: No Hx Human Immunodeficiency Virus (HIV): No (Last Tested: 1999: NEGATIVE.) Hx Hepatitis C: Yes (Diagnosed @ 2008; No Treatment yet.) Hx Depression: No Hx Suicide Attempt: No Hx Bipolar Disorder: No Hx Schizophrenia: No Other Medical History: NO SIUICIDAL,NO HOMICIDAL - Patient Surgical History Past Surgical History: No Hx Neurologic Surgery: No Hx Cataract Extraction: No Hx Cardiac Surgery: No Hx Lung Surgery: No Hx Breast Surgery: No Hx Breast Biopsy: No Hx Abdominal Surgery: No Hx Appendectomy: No Hx Cholecystectomy: No Hx Genitourinary Surgery: No Hx Section: No Hx Orthopedic Surgery: No Anesthesia Reaction: No - PPD History Previous Implant?: Yes Documented Results: Positive w/o proof Date: 03/26/16 PPD to be Administered?: No - Smoking Cessation Smoking history: Current every day smoker Have you smoked in the past 12 months: Yes Aproximately how many cigarettes per day: 10 Cigars Per Day: 0 Hx Chewing Tobacco Use: No Initiated information on smoking cessation: Yes 'Breaking Loose' booklet given: 07/01/17 - Substance & Tx. History Hx Alcohol Use: Yes Hx Substance Use: Yes Substance Use Type: Alcohol, Heroin Hx Substance Use Treatment: Yes ([facility] LAST 01/29/17 TO 02/02/17) - Substances Abused Heroin Route: Injection Frequency: Daily Amount used: 8-9 bags Age of first use: 18 Date of Last Use: 06/30/17 Alcohol-beer Route: Oral Frequency: Daily Amount used: 3-6 pks. Age of first use: 15 Date of Last Use: 06/30/17 Family Disease History - Family Disease History Family Disease History: Heart Disease: Mother (Living, HTN), Other: Father ( , ALCOHOL), Mother, Brother (, MVA.), Sister (2 sisters alive - no problems) Admission Physical Exam [facility] - Vital Signs Vital Signs: Vital Signs - 24 hr 07/01/17 07/01/17 12:30 13:06 Temperature 98.7 F 96.7 F L Pulse Rate 73 73 Respiratory 18 18 Rate Blood Pressure 158/91 158/91 - Physical General Appearance: Yes: Moderate Distress, Tremorous, Irritable, Sweating HEENTM: Yes: Normal ENT Inspection, Normocephalic, JEFFRY, Pharynx Normal Respiratory: Yes: Lungs Clear, Normal Breath Sounds Neck: Yes: Within Normal Limits, Supple, Trachea in good position Breast: Yes: Within Normal Limits Cardiology: Yes: Within Normal Limits, Regular Rhythm, S1, S2 Abdominal: Yes: Within Normal Limits, Normal Bowel Sounds, Non Tender, Soft Genitourinary: Yes: Within Normal Limits Back: Yes: Normal Inspection, Muscle Spasm Musculoskeletal: Yes: full range of Motion, Back pain, Muscle Pain Extremities: Yes: Normal Range of Motion, Tremors 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, Fully Oriented, Alert, Motor Strength 5/5 Integumentary: Yes: Dry Lymphatic: Yes: Within Normal Limits - Diagnostic (1) Opioid dependence with withdrawal Current Visit: Yes Status: Acute (2) Alcohol dependence with uncomplicated withdrawal Current Visit: Yes Status: Acute (3) Syncope Current Visit: No Status: Acute (4) Essential hypertension Current Visit: Yes Status: Chronic (5) Hepatitis C Current Visit: Yes Status: Chronic Qualifiers: Viral hepatitis chronicity: chronic Hepatic coma status: without hepatic coma Qualified Code(s): B18.2 - Chronic viral hepatitis C (6) Nicotine dependence Current Visit: Yes Status: Acute Qualifiers: Nicotine product type: cigarettes Substance use status: in withdrawal Qualified Code(s): F17.213 - Nicotine dependence, cigarettes, with withdrawal (7) PPD positive, treated Current Visit: No Status: Chronic Comment: CXR: 02/2016: Negative for Acute Pathology. (8) Weight loss Current Visit: Yes Status: Acute Cleared for Admission [facility] - Detox or Rehab [facility] Level of Care: Medically Managed Detox Regimen/Protocol: Methadone/Librium [facility] Breath Alcohol Content Breath Alcohol Content: 0 Urine Drug Screen - Results Drug Screen Negative: No Urine Drug Screen Results: OPI-Opiates
[2017-07-01] MEDS ORDERED: IBUPROFEN 400 MG TABLET (FP) PO PRN (16:20)
[2017-07-01] MEDS ORDERED: MAG HYDROX/AL HYDROX/SIMETH 30 ML UNIT-DOSE CUP PO PRN (16:20)
[2017-07-01] MEDS ORDERED: ACETAMINOPHEN 325 MG TABLET (FP) PO PRN (16:20)
[2017-07-01] MEDS ORDERED: NICOTINE POLACRILEX 2 MG GUM BC PRN (16:20)
[2017-07-01] MEDS ORDERED: MENTHOL/PHENOL 1 EACH UD MM PRN (16:20)
[2017-07-01] MEDS ORDERED: METHADONE HCL 10 MG TABLET (FOR DETOX USE ONLY) PO ONE ×2 (16:20→23:00)
[2017-07-01] MEDS ORDERED: MAGNESIUM CITRATE 300 ML BOTTLE PO PRN (16:20)
[2017-07-01] MEDS ORDERED: hydrOXYzine PAMOATE 50 MG CAPSULE (FP) PO PRN (16:20)
[2017-07-01] MEDS ORDERED: LOPERAMIDE HCL 2 MG CAPSULE PO PRN (16:20)
[2017-07-01] MEDS ORDERED: MAGNESIUM HYDROX 2400MG/30ML ORAL SUSPENSION 30 ML CUP PO PRN (16:20)
[2017-07-01] MEDS ORDERED: chlordiazePOXIDE HCL 25 MG CAPSULE PO ONE (16:20)
[2017-07-01] MEDS ORDERED: P-EPHED 60MG/TRIPROLIDI 2.5MG TABLET PO PRN (16:20)
[2017-07-01] MEDS ORDERED: chlordiazePOXIDE HCL 25 MG CAPSULE PO PRN (16:20)
[2017-07-01] MEDS ORDERED: guaiFENesin/D-METHORPHAN HB 10 ML UNIT-DOSE CUPS PO PRN (16:20)
[2017-07-01] MEDS ORDERED: CYCLOBENZAPRINE HCL 10 MG TABLET (FP) PO PRN (16:23)
[2017-07-01] MEDS: LISINOPRIL 10 MG TABLET (FP) PO SCH (18:07)
[2017-07-01] MEDS: chlordiazePOXIDE HCL 25 MG CAPSULE PO SCH ×2 (18:07→22:30)
[2017-07-01] MEDS: THIAMINE HCL 100 MG TABLET (FP) PO SCH (22:30)
[2017-07-01] MEDS: cloNIDine HCL 0.1 MG TABLET PO SCH (22:30)
[2017-07-02 05:01] LABS: URINE APPEARANCE CLEAR; URINE BILIRUBIN NEGATIVE (<2.0 mg/dL); URINE BLOOD 1+ (NEGATIVE); URINE COLOR YELLOW; URINE GLUCOSE (UA) NEGATIVE (NEGATIVE); URINE KETONE NEGATIVE (NEGATIVE); URINE LEUK ESTERASE TRACE (NEGATIVE); URINE NITRITE NEGATIVE (NEGATIVE); URINE PROTEIN NEGATIVE (NEGATIVE)
[2017-07-02] MEDS: chlordiazePOXIDE HCL 25 MG CAPSULE PO SCH ×4 (05:33→22:11)
[2017-07-02 05:52] LABS: CALCIUM OXALATE CRYSTALS RARE /hpf (NONE SEEN); URINE HYALINE CAST 2 /lpf; URINE MUCUS RARE; YEAST FEW
[2017-07-02] MEDS ORDERED: METHADONE HCL 10 MG TABLET (FOR DETOX USE ONLY) PO SCH (10:00)
[2017-07-02 10:14] LABS: HEMATOCRIT 40.6 % (35.4-49); MCH 28.1 pg (25.7-33.7); MCHC 34.4 g/dl (32.0-35.9); MEAN CELL VOLUME 81.6 fl (80-96); MEAN PLT VOLUME 8.9 fl (7.5-11.1); PLATELET COUNT 39 K/MM3 (134-434); RBC 4.97 M/mm3 (4.00-5.60); RDW 14.6 % (11.9-15.9); WHITE BLOOD COUNT 3.3 K/mm3 (4.0-10.0)
[2017-07-02] MEDS: PRENATAL VITAMINS W/ FOLIC ACID TABLET (FP) PO SCH (10:14)
[2017-07-02] MEDS: LISINOPRIL 10 MG TABLET (FP) PO SCH (10:15)
[2017-07-02] MEDS: cloNIDine HCL 0.1 MG TABLET PO SCH ×2 (10:15→22:11)
[2017-07-02 10:47] LABS: CHLORIDE 106 mmol/L (98-107); POTASSIUM 4.3 mmol/L (3.5-5.1); SODIUM 133 mmol/L (136-145)
[2017-07-02 11:06] LABS: ALBUMIN 3.5 g/dl (3.4-5.0); ALK PHOS 101 U/L (45-117); ANION GAP -1 (8-16); BLOOD UREA NITROGEN 12 mg/dL (7-18); CALCIUM 8.5 mg/dL (8.5-10.1); CO2 28 mmol/L (21-32); CREATININE 0.7 mg/dL (0.7-1.3); GLUCOSE,RANDOM 116 mg/dL (74-106); SGOT/AST 95 U/L (15-37); SGPT/ALT 82 U/L (12-78); TOT PROT 8.1 g/dl (6.4-8.2)
--- NOTE | 2017-07-02 12:03 | PN ---
[facility] CIWA - CIWA Score Nausea/Vomitin-No Nausea/No Vomiting Muscle Tremors: 4-Moderate,w/Arms Extend Anxiety: 4-Mod. Anxious/Guarded Agitation: 4-Moderately Restless Paroxysmal Sweats: 1-Minimal Palms Moist Orientation: 0-Oriented Tacttile Disturbances: 3-Moderate Itch/Numb/Burn Auditory Disturbances: 0-None Visual Disturbances: 0-None Headache: 0-None Present CIWA-Ar Total Score: 16 S COWS - Scale Resting Pulse: 1= [place] 81-100 Sweatin= Chills/Flushing Restless Observation: 3= Extraneous Movement Pupil Size: 0= Normal to Room Light Bone or Joint Aches: 4=Acute Joint/Muscle Pain Runny Nose/ Eye Tearin= None GI Upset > 30mins: 0= None Tremor Observation of Outstretched Hands: 1= Tremor [place], Not Seen Yawning Observation: 1= 1-2x During Session Anxiety or Irritability: 2=Irritable/Anxious Goose Flesh Skin: 0=Smooth Skin COWS Score: 13 [facility] Progress Note (SOAP) Subjective: ANXIETY,SWEATS,FATIGUE. Objective: 07/02/17 12:02 Vital Signs Temperature 97.4 F L 07/02/17 09:15 Pulse Rate 81 07/02/17 09:15 Respiratory Rate 20 07/02/17 09:15 Blood Pressure 104/73 07/02/17 09:15 O2 Sat by Pulse Oximetry (%) Laboratory Last Values WBC 3.3 K/mm3 (4.0-10.0) L D 07/02/17 06:00 RBC 4.97 M/mm3 (4.00-5.60) 07/02/17 06:00 Hgb 14.0 GM/dL (11.7-16.9) D 07/02/17 06:00 Hct 40.6 % (35.4-49) 07/02/17 06:00 MCV 81.6 fl (80-96) 07/02/17 06:00 MCH 28.1 pg (25.7-33.7) 07/02/17 06:00 MCHC 34.4 g/dl (32.0-35.9) 07/02/17 06:00 RDW 14.6 % (11.9-15.9) 07/02/17 06:00 Plt Count 39 K/MM3 (134-434) L 07/02/17 06:00 MPV 8.9 fl (7.5-11.1) 07/02/17 06:00 Sodium 133 mmol/L (136-145) L 07/02/17 06:00 Potassium 4.3 mmol/L (3.5-5.1) 07/02/17 06:00 Chloride 106 mmol/L (98-107) 07/02/17 06:00 Carbon Dioxide 28 mmol/L (21-32) 07/02/17 06:00 Anion Gap -1 (8-16) L 07/02/17 06:00 BUN 12 mg/dL (7-18) 07/02/17 06:00 Creatinine 0.7 mg/dL (0.7-1.3) 07/02/17 06:00 Creat Clearance w eGFR > 60 (>60) 07/02/17 06:00 Random Glucose 116 mg/dL (74-106) H 07/02/17 06:00 Calcium 8.5 mg/dL (8.5-10.1) 07/02/17 06:00 Total Bilirubin 1.0 mg/dL (0.2-1.0) 07/02/17 06:00 AST 95 U/L (15-37) H D 07/02/17 06:00 ALT 82 U/L (12-78) H 07/02/17 06:00 Alkaline Phosphatase 101 U/L (45-117) 07/02/17 06:00 Total Protein 8.1 g/dl (6.4-8.2) 07/02/17 06:00 Albumin 3.5 g/dl (3.4-5.0) D 07/02/17 06:00 Urine Color Yellow 07/02/17 00:45 Urine Appearance Clear 07/02/17 00:45 Urine pH 6.0 (5.0-8.0) 07/02/17 00:45 Ur Specific [place] 1.016 (1.001-1.035) 07/02/17 00:45 Urine Protein Negative (NEGATIVE) 07/02/17 00:45 Urine Glucose (UA) Negative (NEGATIVE) 07/02/17 00:45 Urine Ketones Negative (NEGATIVE) 07/02/17 00:45 Urine Blood 1+ (NEGATIVE) H 07/02/17 00:45 Urine Nitrite Negative (NEGATIVE) 07/02/17 00:45 Urine Bilirubin Negative (<2.0 mg/dL) 07/02/17 00:45 Urine Urobilinogen 2.0 mg/dL (0.2-1.0) 07/02/17 00:45 Ur Leukocyte Esterase Trace (NEGATIVE) 07/02/17 00:45 Urine WBC (Auto) 12 /hpf (3-5) 07/02/17 00:45 Urine RBC (Auto) 16 /hpf (0-3) 07/02/17 00:45 Calcium Oxalate Crystal Rare /hpf (NONE SEEN) 07/02/17 00:45 Hyaline Casts 2 /lpf 07/02/17 00:45 Urine Mucus Rare 07/02/17 00:45 Urine Yeast Few 07/02/17 00:45 Assessment: 07/02/17 12:03 WITHDRAWAL SX Plan: CONTINUE DETOX REPEAT UA TODAY INCREASE PO FLUIDS
--- NOTE | 2017-07-02 13:07 | EKG ---
Test Reason : Blood Pressure : / mmHG Vent. Rate : 073 BPM Atrial Rate : 073 BPM P-R Int : 134 ms QRS Dur : 094 ms QT Int : 388 ms P-R-T Axes : 008 068 031 degrees QTc Int : 427 ms NORMAL SINUS RHYTHM NORMAL ECG WHEN COMPARED WITH ECG OF 29-JAN-2017 13:58, NO SIGNIFICANT CHANGE WAS FOUND Confirmed by BENSON BEY MD ([id number]) on 07/02/2017 1:07:30 PM Referred By: Confirmed By:BENSON BEY MD
[2017-07-02 16:02] LABS: URINE APPEARANCE CLEAR; URINE BILIRUBIN NEGATIVE (<2.0 mg/dL); URINE BLOOD NEGATIVE (NEGATIVE); URINE COLOR DKYELLOW; URINE GLUCOSE (UA) NEGATIVE (NEGATIVE); URINE KETONE NEGATIVE (NEGATIVE); URINE NITRITE NEGATIVE (NEGATIVE); URINE PROTEIN NEGATIVE (NEGATIVE); URINE UROBILINOGEN 4.0 E.U/dl mg/dL (0.2-1.0)
[2017-07-02 16:18] LABS: URINE LEUK ESTERASE 2+ (NEGATIVE)
[2017-07-02 16:21] LABS: URINE BACTERIA FEW /hpf (NONE SEEN); URINE MUCUS FEW
[2017-07-02] MEDS: THIAMINE HCL 100 MG TABLET (FP) PO SCH (22:11)
[2017-07-03] MEDS: chlordiazePOXIDE HCL 25 MG CAPSULE PO SCH ×2 (05:32→10:19)
[2017-07-03] MEDS: PRENATAL VITAMINS W/ FOLIC ACID TABLET (FP) PO SCH (10:19)
[2017-07-03] MEDS: METHADONE HCL 5 MG TABLET (FOR DETOX USE ONLY) PO SCH (10:19)
[2017-07-03] MEDS: LISINOPRIL 10 MG TABLET (FP) PO SCH (10:19)
[2017-07-03] MEDS: cloNIDine HCL 0.1 MG TABLET PO SCH ×2 (10:20→22:33)
[2017-07-03] MEDS: chlordiazePOXIDE 5 MG CAPSULE PO SCH ×2 (17:40→22:33)
--- NOTE | 2017-07-03 17:40 | PN ---
[facility] CIWA - CIWA Score Nausea/Vomitin-No Nausea/No Vomiting Muscle Tremors: 3 Anxiety: 5 Agitation: 2 Paroxysmal Sweats: 3 Orientation: 0-Oriented Tacttile Disturbances: 3-Moderate Itch/Numb/Burn Auditory Disturbances: 0-None Visual Disturbances: 2-Mild Sensitivity Headache: 0-None Present CIWA-Ar Total Score: 18 BHS COWS - Scale Resting Pulse: 0= MA 80 or Below Sweatin= Chills/Flushing Restless Observation: 0= Sits Still Pupil Size: 0= Normal to Room Light Bone or Joint Aches: 2= Severe Diffuse Aches Runny Nose/ Eye Tearin= Nasal Congestion GI Upset > 30mins: 0= None Tremor Observation of Outstretched Hands: 0= None Yawning Observation: 2= >3x During Session Anxiety or Irritability: 4=Extreme Anxiety Goose Flesh Skin: 3=Piloerection COWS Score: 13 BHS Progress Note (SOAP) Subjective: Sweating, Fatigue, Anxious, Tremors, Body Aches. Objective: PATIENT A & O X 3, OBSERVED AMBULATING ON UNIT. NO ACUTE DISTRESS. PATIENT DENIES ANY UNUSUAL URINARY SYMPTOMS (BURNING, PAIN, FREQUENCY, URGENCY). 07/03/17 17:37 Vital Signs Temperature 96.8 F L 07/03/17 14:55 Pulse Rate 59 L 07/03/17 14:55 Respiratory Rate 18 07/03/17 14:55 Blood Pressure 102/71 07/03/17 14:55 O2 Sat by Pulse Oximetry (%) Laboratory Tests 07/01/17 07/02/17 07/02/17 06:30 00:45 06:00 WBC 3.3 L D RBC 4.97 Hgb 14.0 D Hct 40.6 MCV 81.6 MCH 28.1 MCHC 34.4 RDW 14.6 Plt Count 39 L MPV 8.9 Sodium Potassium Chloride Carbon Dioxide Anion Gap BUN Creatinine Creat Clearance w eGFR Random Glucose Calcium Total Bilirubin AST ALT Alkaline Phosphatase Total Protein Albumin Urine Color Yellow Urine Appearance Clear Urine pH 6.0 Ur Specific [place] 1.016 Urine Protein Negative Urine Glucose (UA) Negative Urine Ketones Negative Urine Blood 1+ H Urine Nitrite Negative Urine Bilirubin Negative Urine Urobilinogen 2.0 Ur Leukocyte Esterase Trace Urine WBC (Auto) 12 Urine RBC (Auto) 16 Calcium Oxalate Crystal Rare Urine Bacteria Hyaline Casts 2 Urine Mucus Rare Urine Yeast Few RPR Titer HIV 1&2 Antibody Screen Negative HIV P24 Antigen Negative 07/02/17 07/02/17 07/02/17 06:00 06:00 14:55 WBC RBC Hgb Hct MCV MCH MCHC RDW Plt Count MPV Sodium 133 L Potassium 4.3 Chloride 106 Carbon Dioxide 28 Anion Gap -1 L BUN 12 Creatinine 0.7 Creat Clearance w eGFR > 60 Random Glucose 116 H Calcium 8.5 Total Bilirubin 1.0 AST 95 H D ALT 82 H Alkaline Phosphatase 101 Total Protein 8.1 Albumin 3.5 D Urine Color Dkyellow Urine Appearance Clear Urine pH 6.0 Ur Specific [place] 1.019 Urine Protein Negative Urine Glucose (UA) Negative Urine Ketones Negative Urine Blood Negative Urine Nitrite Negative Urine Bilirubin Negative Urine Urobilinogen 4.0 e.u/dl Ur Leukocyte Esterase 2+ H Urine WBC (Auto) 14 Urine RBC (Auto) 4 Calcium Oxalate Crystal Urine Bacteria Few Hyaline Casts Urine Mucus Few Urine Yeast RPR Titer Nonreactive HIV 1&2 Antibody Screen HIV P24 Antigen LABS NOTED. PATIENT HAS HISTORY OF LOW PLATELET LEVELS ON PREVIOUS ADMISSIONS. 07/03/17 17:39 Assessment: 07/03/17 17:38 WITHDRAWAL SYMPTOMS. THROMBOCYTOPENIA. 07/03/17 17:40 Plan: CONTINUE DETOX. INCREASE DAILY PO FLUID INTAKE. REPEAT PLATELET LEVEL TOMORROW AM.
[2017-07-03] MEDS: THIAMINE HCL 100 MG TABLET (FP) PO SCH (22:33)
[2017-07-03] MEDS: MELATONIN 5 MG TABLETS PO PRN (22:35)
[2017-07-04] MEDS: chlordiazePOXIDE 5 MG CAPSULE PO SCH ×2 (06:18→10:11)
[2017-07-04] MEDS: cloNIDine HCL 0.1 MG TABLET PO SCH ×2 (09:55→22:30)
[2017-07-04] MEDS: PRENATAL VITAMINS W/ FOLIC ACID TABLET (FP) PO SCH (10:10)
[2017-07-04] MEDS: METHADONE HCL 5 MG TABLET (FOR DETOX USE ONLY) PO SCH (10:10)
[2017-07-04] MEDS: LISINOPRIL 10 MG TABLET (FP) PO SCH (10:11)
--- NOTE | 2017-07-04 10:39 | PN ---
[facility] Progress Note (SOAP) Subjective: Sweating, Fatigue, Anxious, Body Aches. Objective: PATIENT A & O X 3. NO ACUTE DISTRESS. PATIENT DENIES ANY UNUSUAL URINARY SYMPTOMS (BURNING, PAIN, FREQUENCY, URGENCY). 07/04/17 10:35 Vital Signs Temperature 96.1 F L 07/04/17 09:15 Pulse Rate 60 07/04/17 09:15 Respiratory Rate 18 07/04/17 09:15 Blood Pressure 96/52 07/04/17 09:15 O2 Sat by Pulse Oximetry (%) Laboratory Tests 07/01/17 07/02/17 07/02/17 06:30 00:45 06:00 WBC 3.3 L D RBC 4.97 Hgb 14.0 D Hct 40.6 MCV 81.6 MCH 28.1 MCHC 34.4 RDW 14.6 Plt Count 39 L MPV 8.9 Sodium Potassium Chloride Carbon Dioxide Anion Gap BUN Creatinine Creat Clearance w eGFR Random Glucose Calcium Total Bilirubin AST ALT Alkaline Phosphatase Total Protein Albumin Urine Color Yellow Urine Appearance Clear Urine pH 6.0 Ur Specific [place] 1.016 Urine Protein Negative Urine Glucose (UA) Negative Urine Ketones Negative Urine Blood 1+ H Urine Nitrite Negative Urine Bilirubin Negative Urine Urobilinogen 2.0 Ur Leukocyte Esterase Trace Urine WBC (Auto) 12 Urine RBC (Auto) 16 Calcium Oxalate Crystal Rare Urine Bacteria Hyaline Casts 2 Urine Mucus Rare Urine Yeast Few RPR Titer HIV 1&2 Antibody Screen Negative HIV P24 Antigen Negative 07/02/17 07/02/17 07/02/17 06:00 06:00 14:55 WBC RBC Hgb Hct MCV MCH MCHC RDW Plt Count MPV Sodium 133 L Potassium 4.3 Chloride 106 Carbon Dioxide 28 Anion Gap -1 L BUN 12 Creatinine 0.7 Creat Clearance w eGFR > 60 Random Glucose 116 H Calcium 8.5 Total Bilirubin 1.0 AST 95 H D ALT 82 H Alkaline Phosphatase 101 Total Protein 8.1 Albumin 3.5 D Urine Color Dkyellow Urine Appearance Clear Urine pH 6.0 Ur Specific [place] 1.019 Urine Protein Negative Urine Glucose (UA) Negative Urine Ketones Negative Urine Blood Negative Urine Nitrite Negative Urine Bilirubin Negative Urine Urobilinogen 4.0 e.u/dl Ur Leukocyte Esterase 2+ H Urine WBC (Auto) 14 Urine RBC (Auto) 4 Calcium Oxalate Crystal Urine Bacteria Few Hyaline Casts Urine Mucus Few Urine Yeast RPR Titer Nonreactive HIV 1&2 Antibody Screen HIV P24 Antigen 07/04/17 07:00 WBC RBC Hgb Hct MCV MCH MCHC RDW Plt Count 32 L* MPV Sodium Potassium Chloride Carbon Dioxide Anion Gap BUN Creatinine Creat Clearance w eGFR Random Glucose Calcium Total Bilirubin AST ALT Alkaline Phosphatase Total Protein Albumin Urine Color Urine Appearance Urine pH Ur Specific [place] Urine Protein Urine Glucose (UA) Urine Ketones Urine Blood Urine Nitrite Urine Bilirubin Urine Urobilinogen Ur Leukocyte Esterase Urine WBC (Auto) Urine RBC (Auto) Calcium Oxalate Crystal Urine Bacteria Hyaline Casts Urine Mucus Urine Yeast RPR Titer HIV 1&2 Antibody Screen HIV P24 Antigen LABS NOTED. 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 PATIENT DENIES ANY UNUSUAL BLEEDING OR EASILY BRUISING. 07/04/17 10:36 Assessment: 07/04/17 10:37 WITHDRAWAL SYMPTOMS. Plan: CONTINUE DETOX. INCREASE DAILY PO FLUID INTAKE.
[2017-07-04] MEDS: chlordiazePOXIDE HCL 10 MG CAPSULE PO SCH ×2 (17:34→22:30)
[2017-07-04] MEDS: THIAMINE HCL 100 MG TABLET (FP) PO SCH (22:30)
[2017-07-04] MEDS: MELATONIN 5 MG TABLETS PO PRN (22:30)
[2017-07-05 01:28] LABS: URINE APPEARANCE CLEAR; URINE BILIRUBIN NEGATIVE (<2.0 mg/dL); URINE BLOOD NEGATIVE (NEGATIVE); URINE COLOR YELLOW; URINE GLUCOSE (UA) NEGATIVE (NEGATIVE); URINE KETONE NEGATIVE (NEGATIVE); URINE NITRITE NEGATIVE (NEGATIVE); URINE PROTEIN NEGATIVE (NEGATIVE); URINE UROBILINOGEN 4.0 E.U/dl mg/dL (0.2-1.0)
[2017-07-05 01:43] LABS: URINE LEUK ESTERASE 2+ (NEGATIVE)
[2017-07-05 01:55] LABS: URINE MUCUS RARE
[2017-07-05] MEDS: chlordiazePOXIDE HCL 10 MG CAPSULE PO SCH (05:18)
[2017-07-05] MEDS ORDERED: METHADONE HCL 5 MG TABLET (FOR DETOX USE ONLY) PO SCH (08:43)
[2017-07-05 09:51] VITALS: BP 107/66; PULSE 55; TEMP 96.1
[2017-07-05] MEDS ORDERED: METHADONE HCL 10 MG TABLET (FOR DETOX USE ONLY) PO SCH (10:00)
--- NOTE | 2017-07-05 16:21 | DS ---
[facility] Detox Discharge Summary Admission Date: 07/01/17 Discharge Date: 07/05/17 - History Present History: Alcohol Dependence, Opioid Dependence Additional Comments: PATIENT DENIES CURRENT DETOX SYMPTOMS AND REPORTS THAT HE FEELS WELL OVERALL. PATIENT GOING HOME TO ATTEND TO PERSONAL ISSUES. PATIENT ADVISED TO CONSIDER LOCAL 12-STEP/NA/AA OUTPATIENT SUPPORT GROUPS FOR AFTERCARE. PATIENT DENIES ANY UNUSUAL URINARY SYMPTOMS (BURNING, PAIN, FREQUENCY, URGENCY) AT TIME OF DISCHARGE FROM DETOX. PATIENT ADVISED TO OBTAIN LAUNCH CHECK OUT AT [facility] (NEAR WHERE HE LIVES) AND TO FOLLOW-UP FOR MEDICAL EVALUATION OF HISTORY OF LOW PLATELET LEVEL AND FOR ABNORMAL UA RESULTS NOTED WHILE ADMITTED FOR DETOX. COPIES OF ALL LABS DRAWN WHILE ADMITTED FOR DETOX GIVEN TO PATIENT AT TIME OF DISCHARGE. PATIENT WAS DISCHARGED FROM DETOX UNIT IN STABLE MEDICAL CONDITION. Pertinent Past History: Hep C, HTN, History of Positive PPD (Treated), Nicotine Dependence, Syncope, Weight Loss. - Physical Exam Results Vital Signs: Vital Signs Temperature 96.1 F L 07/05/17 09:00 Pulse Rate 55 L 07/05/17 09:00 Respiratory Rate 18 07/05/17 09:00 Blood Pressure 107/66 07/05/17 09:00 O2 Sat by Pulse Oximetry (%) Pertinent Admission Physical Exam Findings: WITHDRAWAL SYMPTOMS. Laboratory Tests 07/01/17 07/02/17 07/02/17 06:30 00:45 06:00 WBC 3.3 L D RBC 4.97 Hgb 14.0 D Hct 40.6 MCV 81.6 MCH 28.1 MCHC 34.4 RDW 14.6 Plt Count 39 L MPV 8.9 Sodium Potassium Chloride Carbon Dioxide Anion Gap BUN Creatinine Creat Clearance w eGFR Random Glucose Calcium Total Bilirubin AST ALT Alkaline Phosphatase Total Protein Albumin Urine Color Yellow Urine Appearance Clear Urine pH 6.0 Ur Specific [place] 1.016 Urine Protein Negative Urine Glucose (UA) Negative Urine Ketones Negative Urine Blood 1+ H Urine Nitrite Negative Urine Bilirubin Negative Urine Urobilinogen 2.0 Ur Leukocyte Esterase Trace Urine WBC (Auto) 12 Urine RBC (Auto) 16 Calcium Oxalate Crystal Rare Urine Bacteria Hyaline Casts 2 Urine Mucus Rare Urine Yeast Few RPR Titer HIV 1&2 Antibody Screen Negative HIV P24 Antigen Negative 07/02/17 07/02/17 07/02/17 06:00 06:00 14:55 WBC RBC Hgb Hct MCV MCH MCHC RDW Plt Count MPV Sodium 133 L Potassium 4.3 Chloride 106 Carbon Dioxide 28 Anion Gap -1 L BUN 12 Creatinine 0.7 Creat Clearance w eGFR > 60 Random Glucose 116 H Calcium 8.5 Total Bilirubin 1.0 AST 95 H D ALT 82 H Alkaline Phosphatase 101 Total Protein 8.1 Albumin 3.5 D Urine Color Dkyellow Urine Appearance Clear Urine pH 6.0 Ur Specific [place] 1.019 Urine Protein Negative Urine Glucose (UA) Negative Urine Ketones Negative Urine Blood Negative Urine Nitrite Negative Urine Bilirubin Negative Urine Urobilinogen 4.0 e.u/dl Ur Leukocyte Esterase 2+ H Urine WBC (Auto) 14 Urine RBC (Auto) 4 Calcium Oxalate Crystal Urine Bacteria Few Hyaline Casts Urine Mucus Few Urine Yeast RPR Titer Nonreactive HIV 1&2 Antibody Screen HIV P24 Antigen 07/04/17 07/04/17 07:00 18:25 WBC RBC Hgb Hct MCV MCH MCHC RDW Plt Count 32 L* MPV Sodium Potassium Chloride Carbon Dioxide Anion Gap BUN Creatinine Creat Clearance w eGFR Random Glucose Calcium Total Bilirubin AST ALT Alkaline Phosphatase Total Protein Albumin Urine Color Yellow Urine Appearance Clear Urine pH 6.0 Ur Specific [place] 1.017 Urine Protein Negative Urine Glucose (UA) Negative Urine Ketones Negative Urine Blood Negative Urine Nitrite Negative Urine Bilirubin Negative Urine Urobilinogen 4.0 e.u/dl Ur Leukocyte Esterase 2+ H Urine WBC (Auto) 31 Urine RBC (Auto) 4 Calcium Oxalate Crystal Urine Bacteria Hyaline Casts Urine Mucus Rare Urine Yeast RPR Titer HIV 1&2 Antibody Screen HIV P24 Antigen LABS NOTED. - Treatment Hospital Course: Detox Protocol Followed, Detoxed Safely, Responded well, Discharged Condition Good Patient has Accepted a Rehab Referral to: PT DECLINES; ADVISED TO CONSIDER LOCAL 12-STEP/NA/AA SUPPORT GROUPS. - Medication Discharge Medications: Ambulatory Orders Lisinopril 10 mg PO DAILY 07/27/16 - Diagnosis (1) Alcohol dependence with uncomplicated withdrawal Status: Acute (2) Nicotine dependence Status: Acute Qualifiers: Nicotine product type: cigarettes Substance use status: in withdrawal Qualified Code(s): F17.213 - Nicotine dependence, cigarettes, with withdrawal (3) Opioid dependence with withdrawal Status: Acute (4) Weight loss Status: Acute (5) Essential hypertension Status: Chronic (6) Hepatitis C Status: Chronic Qualifiers: Viral hepatitis chronicity: chronic Hepatic coma status: without hepatic coma Qualified Code(s): B18.2 - Chronic viral hepatitis C (7) Syncope Status: Acute Qualifiers: Syncope type: unspecified Qualified Code(s): R55 - Syncope and collapse (8) PPD positive, treated Status: Chronic - AMA Did Patient Leave Against Medical Advice: No
[2017-07-06] MEDS ORDERED: METHADONE HCL 5 MG TABLET (FOR DETOX USE ONLY) PO SCH (06:00)
--- NOTE | 2017-07-08 15:03 | PN ---
[facility] Progress Note Note: Attempted to contact patient on listed contact telephone number (as previously confirmed by patient while he was still admitted for Detox) in order to inform him of Result of URINE C + S done while admitted for Detox (RESULT: NO GROWTH OBTAINED). However, received automated message stating that telephone number is Out of Service and that no further information is available. Bonnie Bauer [employer]ER [employer]
== END 2017-07-05 09:18 | disposition home or self-care (01) | DRG 775 ==
LOC: YASAS 11:36 → Y3N 16:31
PROVIDERS: ADMIT Internal Medicine; ATTEND Internal Medicine
PROC: HZ2ZZZZ Detoxification Services for Substance Abuse Treatment (ICD-10-PCS; principal; 2017-07-01)
DX: F10.230 Alcohol dependence with withdrawal, uncomplicated (principal); F17.213 Nicotine dependence, cigarettes, with withdrawal; I10 Essential (primary) hypertension; B18.2 Chronic viral hepatitis C; R55 Syncope and collapse; R63.4 Abnormal weight loss; Z68.25 Body mass index [BMI] 25.0-25.9, adult; R76.11 Nonspecific reaction to tuberculin skin test without active tuberculosis
CPT/HCPCS: 36415; 80053; 81003; 81015; 85027; 85032; 86593; 87086; 87389; 93005; 93010; J0735